=== PATIENT | male | born 1960 | race Caucasian/White ===

== ENCOUNTER → 2020-01-05 09:59 | Outpatient (CLI) | payer OTHER, SELFPAY ==
--- NOTE | ~2020-01-05 | US_ITS ---
US renal BI 01/05/2020 10:17 Procedure: Realtime transabdominal ultrasound of the kidneys and bladder. Indication: Acute renal failure Comparison: No prior studies for comparison. Findings: Renal echotexture is normal bilaterally without hydronephrosis, contour deforming mass or r enal calculus. The right kidney measures 11.1 cm and left kidney measures 11.1 cm. Bladder within no rmal limits. Impression: 1: Unremarkable renal ultrasound. No stones, masses or hydronephrosis. Reviewed, dictated and finalized at location B. ESS AND WELLNESS DIRECTOR Impression: 1: Unremarkable renal ultrasound. No stones, masses or hydronephrosis.
== END ==
PROVIDERS: PCP Family Medicine; Visit Provider Internal Medicine Nephrology
DX: N17.9 Acute kidney failure, unspecified (principal)
CPT/HCPCS: 76775

== ENCOUNTER 2021-03-16 03:42 | Emergency (ER) | payer OTHER, SELFPAY ==
--- NOTE | ~2021-03-16 | XR_ITS ---
EXAMINATION: XR shoulder RT min 2V, XR ribs RT 2V w CXR 2V DATE: 03/16/2021 04:44 INDICATION: Fall presenting with anterolateral right chest pain and diffuse right shoulder tenderness . Sensation of shoulder popping out and back in place at the time of the injury. TECHNIQUE: 1. AP internally and externally rotated, AP oblique externally rotated and transscapular Y views of t he right shoulder were obtained. 2. PA and lateral views of the chest and 3 views of the right ribs were obtained. COMPARISON: None FINDINGS: Chest and ribs: No rib fractures. Lungs are clear with no focal airspace opacities, pulmonary edema, pleural effusion or pneumothorax. Cardiomediastinal silhouette is normal. There are bridging osteophytes at multiple levels in the spine, consistent with diffuse idiopathic skeletal hyperostosis (DISH). Right shoulder: Normal alignment. No fracture. Moderate right glenohumeral osteoarthritis with small marginal osteop hytes and inferior predominant nonuniform joint space. Mild acromioclavicular osteoarthritis. Small c alcified right axillary lymph node likely related to history of treated lymphoma. IMPRESSION: 1. No rib fractures or acute cardiopulmonary disease. 2. Mild right acromioclavicular and moderate glenohumeral osteoarthritis. No acute osseous abnormalit y. Reviewed, dictated and finalized at location A. RNAL REVENUE AGENT IMPRESSION: 1. No rib fractures or acute cardiopulmonary disease. 2. Mild right acromioclavicular and moderate glenohumeral osteoarthritis. No ac [place] osseous abnormality.
[2021-03-16 04:06] VITALS: BP 173/116; PULSE 79; RESP 20; TEMP 36.8; O2SAT 99
--- NOTE | 2021-03-16 04:36 | ED.FALL ---
HPI - Fall General Chief Complaint: Fall Stated Complaint: fall with injury Time Seen by Provider: 03/16/21 04:15 Source: patient History of Present Illness HPI Narrative: Patient presents after a fall reports he is coming down some stairs when his foot slipped try to catch himself with his right arm which got pulled and he felt a pop and then he struck his right shoulder on the concrete and felt another pop. Is concerned he dislocated and then relocated his right shoulder. The event happened yesterday afternoon his pain has persisted so he came to the ER for evaluation. Denies any focal numbness or weakness. His pain is achy, constant, worse with moving his right shoulder. He denied striking his head denies any loss of consciousness denies any nausea or vomiting he denies use of blood thinners Related Data Home Medications Medication Instructions Recorded Confirmed alprazolam 02/14/19 atenolol 02/14/19 atorvastatin 02/14/19 clopidogrel 02/14/19 cyclobenzaprine mg 02/14/19 metformin mg 02/14/19 methotrexate sodium 02/14/19 cyclobenzaprine mg 03/16/21 Allergies Allergy/AdvReac Type Severity Reaction Status Date / Time No Known Allergies Allergy Unverified 03/16/21 04:09 Review of Systems Review of Systems: CONSTITUTIONAL: Denies fever, chills, or sweats. EYES: Denies visual changes, redness, or discharge. ENT: Denies rhinorrhea, congestion, sore throat, or otalgia. CARDIOVASCULAR: Denies palpitations, or edema. RESPIRATORY: Denies cough or dyspnea. GASTROINTESTINAL: Denies abdominal pain, nausea, vomiting, or diarrhea. GENITOURINARY: Denies dysuria or hematuria. SKIN: Denies rash or itching. MUSCULOSKELETAL: Denies back pain, or myalgia. NEUROLOGIC: Denies headache, numbness, dizziness, or weakness. PSYCHIATRIC: Denies anxiety or depression. All systems reviewed & are unremarkable except as noted in HPI and below PMFSH Family History Family History Father Cerebrovascular accident Family history of Alzheimer's disease Malignant neoplasm of prostate Mother Family history of dementia Social History Social History Smoking status: Never smoker Alcohol intake: never Exam Narrative: GENERAL: Well-appearing, well-nourished, and in no acute distress. HEAD: Normocephalic, atraumatic. EYES: PERRLA and EOMI. ENT: Nares clear, no rhinorrhea or epistaxis. Mucous membranes moist. NECK: Supple. No masses. No JVD CHEST: Clear to auscultation. No respiratory distress. No wheezes rales or rhonchi mild tenderness with palpation on the right upper anterior chest no obvious deformity HEART: Regular rate and rhythm. No murmur heard. Normal peripheral pulses. EXTREMITIES: Good range of motion of the right shoulder due to pain there is diffuse tenderness to the right shoulder there is no obvious deformity distal extremity sensation intact 5 out of 5 strength and cap refill less than 2 seconds SKIN: Warm, dry, no rash. NEURO: No focal deficits. Alert and oriented x3. PSYCH: Normal mood and affect. Course Reevaluation(s) Reevaluation #1: Patient resting comfortably results and plan reviewed with patient. Patient is comfortable outpatient plan. Date: 03/16/21 Time: 04:56 Vital Signs Vital signs: Vital Signs Temperature 36.8 C 03/16/21 04:06 Pulse Rate 79 03/16/21 04:06 Respiratory Rate 20 03/16/21 04:06 Blood Pressure 173/116 H 03/16/21 04:06 Pulse Oximetry 99 03/16/21 04:06 Temperature 36.8 C 03/16/21 04:06 Pulse Rate 72 03/16/21 05:32 Respiratory Rate 16 03/16/21 05:32 Blood Pressure 156/86 H 03/16/21 05:32 Pulse Oximetry 98 03/16/21 05:32 MDM - Fall MDM Narrative Medical decision making narrative: H&P as above, vss, pt looks clinically well, exam with diffuse tenderness on the right upper anterior chest and right shoulder, labs imaging without acute p
[2021-03-16 05:32] VITALS: BP 156/86; PULSE 72; RESP 16; O2SAT 98
== END 2021-03-16 05:33 | disposition home or self-care (01) ==
LOC: ANHED 05:13
PROVIDERS: Emergency Provider Emergency Medicine; PCP Family Medicine
DX: S49.91XA Unspecified injury of right shoulder and upper arm, initial encounter (principal); R07.89 Other chest pain; W18.49XA Other slipping, tripping and stumbling without falling, initial encounter
CPT/HCPCS: 71046; 71100; 73030; 99284; A4565

== ENCOUNTER 2021-07-30 13:45 | Observation (INO) | payer OTHER, SELFPAY ==
[2021-07-30] VITALS (24 sets, daily range): BP systolic 147–184; BP diastolic 89–108; PULSE 69–84; RESP 12–21; TEMP 36.3–36.6; O2SAT 96–99; BMI 25.9
--- NOTE | ~2021-07-30 | CT_ITS ---
EXAMINATION: CTA chest PE protocol DATE: 07/30/2021 16:36 INDICATION: chest pain TECHNIQUE: Computed tomography angiography (CTA) of the chest was performed with 100 mL Omnipaque-350 intravenous contrast timed to evaluate the pulmonary arteries. Coronal maximum intensity projection 3D-reconstructions were created by the technologist. The dose-length product (DLP) was 933.05 mGy-cm. Automated exposure control and iterative reconstruction technique were employed. COMPARISON: X-ray chest, same date. PET/CT 10/02/2017. FINDINGS: Study quality: Adequate. Pulmonary arteries: No pulmonary emboli detected. Thoracic aorta: Minimal arch calcification. Minimal ectasia. Lung parenchyma and airways: Stable pulmonary nodules, likely representing granulomatous disease. Min imal biapical pleural scarring. Thoracic inlet, axillae and chest wall: Stable partially calcified right axillary lymph node. Mediastinum: Normal. Heart and pericardium: Normal. Coronary artery calcifications: Moderate. Pleura: Unremarkable. Upper abdomen: No significant finding. Bones: No acute osseous finding. IMPRESSION: No CT evidence of acute pulmonary embolus. Reviewed, dictated and finalized at location K.
--- NOTE | ~2021-07-30 | XR_ITS ---
EXAMINATION: XR chest 1V portable Exam Date/Time: 07/30/2021 14:20 CDT HISTORY: LEFT SIDED CHEST PAIN Comparison: 03/02/2009. RESULT: Lines, tubes, and devices: None. Lungs and pleura: Clear. Cardiomediastinal silhouette: Stable cardiomediastinal silhouette. Other: No acute osseous or upper abdominal finding. IMPRESSION: No acute cardiopulmonary process. Reviewed, dictated and finalized at location K.
--- NOTE | 2021-07-30 13:49 | ECG_ITS ---
Measurements Intervals [place] Rate: 75 P: 54 SC: 145 QRS: -4 QRSD: 101 T: -1 QT: 378 QTc: 425 Interpretive Statements SINUS RHYTHM NONSPECIFIC T-WAVE ABNORMALITY ABNORMAL ECG NO PREVIOUS ECG AVAILABLE FOR COMPARISON Electronically Signed On 07-31-2021 7:08:17 CDT by Jose Tate M.D.
--- NOTE | 2021-07-30 13:51 | ED.GENADULT ---
HPI - General Adult General Chief complaint: Chest Pain Stated complaint: CP Source: RN notes reviewed History of Present Illness HPI narrative: Patient presents emergency department from home via EMS for chest pain. Patient states pain is located over the left side of the chest does not radiate described as a pressure in nature. He states he had an episode of chest pain last evening lasted for approximately 20 minutes and resolved on its own he states that this episode occurred approximate hour ago and still ongoing patient states nothing makes the pain better or worse he denies any fevers or chills does note mild shortness of breath with the symptoms denies any abdominal pain nausea vomiting or diarrhea. Denies any previous cardiac history Related Data Home Medications Medication Instructions Recorded Confirmed alprazolam 1 mg tablet 02/14/19 atenolol 50 mg tablet 02/14/19 atorvastatin 40 mg tablet 02/14/19 clopidogrel 75 mg tablet 02/14/19 cyclobenzaprine 10 mg tablet mg 02/14/19 metformin 1,000 mg tablet mg 02/14/19 methotrexate sodium 2.5 mg tablet 02/14/19 cyclobenzaprine 10 mg tablet mg 03/16/21 Allergies Allergy/AdvReac Type Severity Reaction Status Date / Time No Known Allergies Allergy Verified 07/30/21 13:55 Review of Systems Review of Systems: Gen.: Denies fevers or chills ENT: Denies congestion Respiratory: Reports shortness of breath CV: See HPI GI: Denies abdominal pain nausea, emesis or diarrhea Musculoskeletal: Denies back pain or muscle pain Neuro: Denies numbness, tingling, weakness or focal weakness Skin: Denies rash Except as documented, all other systems reviewed and negative [facility] Past Medical History Medical History (Updated 07/30/21 @ 14:35 by Leobardo Alexander DO) Hypertension Family History Family History Father Cerebrovascular accident Family history of Alzheimer's disease Malignant neoplasm of prostate Mother Family history of dementia Social History Social History Smoking status: Never smoker Alcohol intake: never Exam Narrative: APPEARANCE: No acute distress, nontoxic, resting in bed EYES: EOMI HEENT: Normocephalic, atraumatic, OMM RESPIRATORY: No respiratory distress Clear to auscultation bilaterally with no rhonchi wheezing or rales. CARDIOVASCULAR: Regular rate and rhythm without murmurs rubs or gallops. ABDOMINAL: Soft, nontender, nondistended, no rebound or guarding MUSCULOSKELETAl: Moves all extremities. No clubbing, cyanosis or edema. NEURO: Awake and alert. Following commands, speech normal, no focal deficits SKIN:: Warm, dry. No rashes lesions or abrasions PSYCHIATRIC: Normal affect/mood, Course Course Emergency Course: Patient states chest pain is now resolved at this time Discussed with DIONNE Diaz for Dr. Alberto agrees with admission Discussed with Dr. Tate agrees with consult Discussed with patient and family results of workup and diagnosis. Discussed need for admission. Patient and family understand and agree to current treatment plan Vital Signs Vital signs: Vital Signs Pulse Rate 81 07/30/21 13:49 Respiratory Rate 17 07/30/21 13:49 Blood Pressure 173/104 H 07/30/21 13:49 Pulse Oximetry 97 07/30/21 13:49 Oxygen Delivery Room Air 07/30/21 13:49 Pulse Rate 79 07/30/21 16:45 Respiratory Rate 12 07/30/21 16:45 Blood Pressure 151/94 H 07/30/21 16:16 Pulse Oximetry 97 07/30/21 16:45 Oxygen Delivery Room Air 07/30/21 13:49 Medical Decision Making Vital Signs Vital Signs: Vital Signs Pulse Rate 81 07/30/21 13:49 Respiratory Rate 17 07/30/21 13:49 Blood Pressure 173/104 H 07/30/21 13:49 Pulse Oximetry 97 07/30/21 13:49 Oxygen Delivery Room Air 07/30/21 13:49 Pulse Rate 79 07/30/21 16:45 Respiratory Rate 12 07/30/21 16:45 Blood Pressure 15
[2021-07-30 14:00] LABS: Basophils Percent Auto 0.2 % (0.2-1.2); Eosinophils Absolute Auto 0.1 K/mm3 (0-0.3); Eosinophils Percent Auto 1.3 % (0-4.4); Hematocrit 34.9 % (42.0-52.0); Hemoglobin 11.3 g/dL (14.0-18.0); Immature Granulocyte Absolute 0.03 K/mm3 (0.00-0.031); Immature Granulocyte Percent A 0.4 % (0-0.5); Lymphocytes Absolute Auto 2.12 K/mm3 (0.9-3.2); Lymphocytes Percent Auto 25.3 % (18.3-44.2); Mean Corpuscular HGB Conc 32.4 g/dl (32-36); Mean Corpuscular Hemoglobin 31.2 pg (26-34); Mean Corpuscular Volume 96.4 fl (80-100); Mean Platelet Volume 10.1 fl (7.4-10.4); Monocytes Absolute Auto 0.8 K/mm3 (0.1-0.6); Monocytes Percent Auto 9.7 % (2.6-8.5); Neutrophils Absolute Auto 5.3 K/mm3 (1.3-6.7); Neutrophils Percent Auto 63.1 % (45.5-73.1); Platelet Count Result 258 k/mm3 (150-375); Red Blood Count 3.62 M/mm3 (4.6-6.20); White Blood Count 8.4 K/mm3 (4.5-10.0)
[2021-07-30 14:10] LABS: Alanine Aminotransferase 15 U/L (6-50); Alkaline Phosphatase 86 U/L (38-126); Anion Gap 8 mmol/L (8-16); Aspartate Amino Transferase 18 U/L (17-59); Bilirubin,Total 0.2 mg/dL (0.2-1.3); Blood Urea Nitrogen 18 mg/dL (9-20); Calcium 8.4 mg/dL (8.4-10.2); Carbon Dioxide 23 mmol/L (22-30); Chloride 107 mmol/L (98-107); Estimated CRCL calculation 45 ml/min; Estimated Glomerular Filt Rate 41; Glucose 99 mg/dL (65-110); Lipase 296 U/L (23-300); Potassium 3.5 mmol/L (3.4-5.0); Sodium 138 mmol/L (137-145)
[2021-07-30 14:13] LABS: INR 0.9; Partial Thromboplastin Time 25.5 SECONDS (22.3-36.8); Prothrombin Time 12.1 Seconds (11.1-14.7)
[2021-07-30 14:22] LABS: Troponin I < 0.012 ng/mL (0.000-0.034)
[2021-07-30 17:30] LABS: Troponin I < 0.012 ng/mL (0.000-0.034)
[2021-07-30] MEDS: SODIUM CHLORIDE 0.9% IV 1,000 ML 999 ML IV CONT (17:33)
[2021-07-30 17:52] LABS: SARS-CoV-2 RNA PCR Negative
--- NOTE | 2021-07-30 18:04 | ADMGEN ---
This patient, Ham Moreno, was admitted to IMU Room 201-01 at 1755. Patient/family oriented to hospital policies and general routines including ID bracelet, bed and alarms, visiting hours, pain management, procedures, bathroom and other care routines, personal items, smoking policy, room service/diet, and visiting hours. Information on how to activate the Rapid Response Team has been discussed. Patient/Family are encouraged to report perceived risks to care and to ask questions if they do not understand what they are told or what they should do.
[2021-07-30 19:03] LABS: Glucose Point of Care 146 mg/dl (65-105)
--- NOTE | 2021-07-30 20:11 | PM.IMHP ---
H&P: HPI History of Present Illness Date/Time: 07/30/21 20:11 Chief Complaint: Chest pain. Narrative: Patient is a 61-year-old male past medical history significant for hypertension, T-cell lymphoma, GERD, dyslipidemia. Patient presents to the emergency room due to sudden onset of chest pain localized to the retrosternal area associated with diaphoresis, dizziness, lightheadedness, near-syncope, sharp stabbing pain rates it at 9/10 in intensity had 2 episodes of this pain while at rest at home. Patient has been in his usual state of health prior to this denies any chest pain with exertion, no nausea, no vomiting, no abdominal pain, no diarrhea, no PND, no leg swelling. Patient states that he had a catheterization done a while back ago which did not show any abnormalities. Preliminary workup has been essentially nonrevealing. Patient is been admitted for further evaluation, management and treatment. Review of Systems Review of Systems: Retrosternal chest pain. Constitutional: Constitutional: Denies body ache(s), Denies chills, Denies fatigue, Denies fever(s), Denies lethargy and Denies night sweats Eyes: Eyes: Denies change in vision ENT: Denies dysphagia, Reports vertigo, Reports dizziness, Denies nasal congestion, Denies nasal discharge, Denies odynophagia and Denies disequilibrium Cardiovascular: Cardiovascular: Reports chest pain, Reports chest pain at rest, Denies pedal edema, Denies irregular heart rhythm, Denies claudication, Denies leg edema, Reports lightheadedness, Denies radiating jaw, neck or arm pain, Denies palpitations, Denies dyspnea on exertion and Denies paroxysmal nocturnal dyspnea Respiratory: Respiratory: Denies change in phlegm color, Denies chest congestion, Denies cough and Denies excessive phlegm production Gastrointestinal: Gastrointestinal: Denies abdominal pain, Denies melena, Denies dyspepsia, Denies heartburn, Denies nausea and Denies vomiting Genitourinary: Genitourinary: Reports no additional male genitourinary complaints and Reports as per HPI Musculoskeletal: Musculoskeletal: Denies arthralgias and Denies joint swelling Integumentary/Breasts: Skin/Breast: Denies rash Neurologic: Denies focal weakness and Denies Sensory deficit (Neuro) Psychiatric: Psychiatric: Reports no additional psychiatric complaints and Reports as per HPI Endocrine: Endocrine: Denies cold intolerance, Denies fatigue, Denies flushing, Denies heat intolerance, Denies polyphagia, Denies polydipsia and Denies palpitations Hematologic/Lymphatic: Hematologic/Lymphatic: Reports no additional hematologic/lymphatic complaints and Reports as per HPI Allergic/Immunologic: Allergic/Immunologic: Reports no additional allergic/immunologic complaints and Reports as per HPI PMFSH Past Medical History Medical History (Updated 07/31/21 @ 16:35 by Ephraim Blackwell MD) Hypertension T-cell lymphoma Family History Family History Father Cerebrovascular accident Family history of Alzheimer's disease Malignant neoplasm of prostate Mother Family history of dementia Social History Social History Smoking status: Former smoker Tobacco type: cigarettes Second hand tobacco smoke exposure: No Alcohol intake: former Substance use: former Substance use type: marijuana Spiritual care concerns: No Meds Home Medications and Allergies Home Medications Medication Instructions Recorded Confirmed Type alprazolam 1 mg tablet (Xanax) 1 mg PO BID PRN Anxiety 02/14/19 07/30/21 History atorvastatin 40 mg tablet (Lipitor) 40 mg PO QPM 02/14/19 07/30/21 History cyclobenzaprine 10 mg tablet 10 mg PO TID PRN Nerve pain 02/14/19 07/30/21 History metformin 1,000 mg tablet 1,000 mg PO BID 02/14/19 07/30/21 History methotrexate sodium 2.5 mg tablet 20 mg PO WEEKLY 02/14/19 07/30/21 History amlodipine 5 mg tablet (Norvasc) 5
[2021-07-30 20:19] LABS: Troponin I < 0.012 ng/mL (0.000-0.034)
[2021-07-30 20:57] LABS: Glucose Point of Care 124 mg/dl (65-105)
[2021-07-31] VITALS (9 sets, daily range): BP systolic 148–187; BP diastolic 85–108; PULSE 66–98; RESP 15–16; TEMP 36.4–36.9; O2SAT 98–100
[2021-07-31 04:48] LABS: Basophils Percent Auto 0.3 % (0.2-1.2); Eosinophils Absolute Auto 0.1 K/mm3 (0-0.3); Eosinophils Percent Auto 1.3 % (0-4.4); Hematocrit 35.7 % (42.0-52.0); Immature Granulocyte Absolute 0.04 K/mm3 (0.00-0.031); Immature Granulocyte Percent A 0.6 % (0-0.5); Lymphocytes Absolute Auto 1.85 K/mm3 (0.9-3.2); Lymphocytes Percent Auto 25.9 % (18.3-44.2); Mean Corpuscular HGB Conc 33.6 g/dl (32-36); Mean Corpuscular Hemoglobin 31.3 pg (26-34); Mean Corpuscular Volume 93.2 fl (80-100); Mean Platelet Volume 10.7 fl (7.4-10.4); Monocytes Absolute Auto 0.7 K/mm3 (0.1-0.6); Monocytes Percent Auto 9.5 % (2.6-8.5); Neutrophils Absolute Auto 4.5 K/mm3 (1.3-6.7); Neutrophils Percent Auto 62.4 % (45.5-73.1); Platelet Count Result 250 k/mm3 (150-375); Red Blood Count 3.83 M/mm3 (4.6-6.20); White Blood Count 7.1 K/mm3 (4.5-10.0)
[2021-07-31 05:00] LABS: Alanine Aminotransferase 13 U/L (6-50); Albumin Level 3.7 g/dL (3.5-5.1); Alkaline Phosphatase 60 U/L (38-126); Anion Gap 6 mmol/L (8-16); Aspartate Amino Transferase 17 U/L (17-59); Bilirubin,Total 0.2 mg/dL (0.2-1.3); Blood Urea Nitrogen 17 mg/dL (9-20); Calcium 8.5 mg/dL (8.4-10.2); Carbon Dioxide 25 mmol/L (22-30); Chloride 109 mmol/L (98-107); Estimated CRCL calculation 54 ml/min; Estimated Glomerular Filt Rate 51; Glucose 88 mg/dL (65-110); Potassium 3.8 mmol/L (3.4-5.0); Sodium 140 mmol/L (137-145)
[2021-07-31 08:42] LABS: CRP < 0.5 mg/dL (<1.0); Creatine Kinase 50 U/L (55-170)
--- NOTE | 2021-07-31 08:45 | PM.CNCAR ---
Assessment and Plan Assessment and plan (1) Chest pain: Code(s): R07.9 - Chest pain, unspecified Status: Acute Plan This is a 61-year-old man with hypertension who presents to the hospital with stabbing episodes of chest pain that were occurring yesterday prompting evaluation in the emergency room and admitted to the hospital. The symptoms are very atypical of myocardial ischemia in my opinion. His ECG and troponin levels show no evidence of acute coronary syndrome. I do not believe this patient needs to be kept in the hospital for further cardiac evaluation. He is concerned that none of his home medications have been administered I do not believe they have been ordered since he has been up on the floor. I am going to sign off his case at this time. If you need my opinion about anything else please let me know Jose Tate MD [facility] History of Present Illness History of Present Illness Consult date/time: 07/31/21 08:45 Consult reason: chest pain Reason For Visit: Chest Pain Narrative: This is a 61-year-old man I am seeing at the request of the hospitalist this morning because of chest pain that resulted in admitting him to the hospital yesterday evening. He states that at about mid day yesterday around noon time he started to experience chest pain at home. He had finished eating a meal with his sister and he laid down on the couch in his home to relax. He suddenly was feeling unwell with sharp knife-like stabbing pain in the center of the chest that was obviously very concerning to him. He was having these symptoms off and on for about 15 minutes. It did not associated with any sense of air hunger radiation to any other part of the body or nausea vomiting or diaphoresis. He after about 15 minutes of this was concerned enough to call 911 he was brought to the emergency room for evaluation. The discomfort has subsided on its own although he feels there is still a funny sensation in his chest that he has a hard time describing any further. He otherwise appears to be comfortable watching television relaxing in bed and does not have any other complaints. He is not known to have any cardiac problems prior to this. He seeks his medical care elsewhere usually. He has been hospitalized in the past couple of times and in [place] for various problems he states that a few years ago he had a similar episode of some chest pain like this was hospitalized at that institution actually underwent coronary angiography which she was told was favorable. Of course we have none of those records at the time of this dictation as none of this care was delivered here at [place]. In the emergency room the patient's electrocardiogram shows sinus rhythm with some nonspecific T-wave flattening. His troponin levels have remained normal x3 sets. Review of Systems Constitutional: Constitutional: Reports no additional constitutional complaints Eyes: Eyes: Reports no additional eye complaints ENT: Reports system reviewed and no additional complaints, except as documented Cardiovascular: Cardiovascular: Reports as per HPI Respiratory: Respiratory: Reports no additional respiratory complaints Gastrointestinal: Gastrointestinal: Reports no additional gastrointestinal complaints Musculoskeletal: Musculoskeletal: Reports arthralgias Comments: Patient has chronic right shoulder pain Integumentary/Breasts: Skin/Breast: Reports system reviewed and no additional complaints, except as docu Neurologic: Reports system reviewed and no additional complaints, except as documented Endocrine: Endocrine: Reports no additional endocrine complaints Hematologic/Lymphatic: Hematologic/Lymphatic: Reports no additional hematologic/lymphatic complaints Allergic/Immunologic: Allergic/Immunologic: Reports no additional allergic/immunologic complaints [facility] Past Medical History Medical History (Updated 07/31/21 @ 02:08 by Phuong Ferrari MD) Hype
[2021-07-31 09:31] LABS: Glucose Point of Care 103 mg/dl (65-105)
[2021-07-31] MEDS: CLOPIDOGREL BISULFATE 75 MG TABLET PO (09:57)
[2021-07-31 12:02] LABS: Creatinine Urine 43.7 mg/dL
[2021-07-31 12:04] LABS: Sodium Urine Random 67 meq/L
[2021-07-31 12:06] LABS: Glucose Point of Care 112 mg/dl (65-105)
[2021-07-31 12:10] LABS: RBC Urine 0-2 /hpf (0-2); WBC Urine 0-3 /hpf (0-3)
[2021-07-31 12:15] LABS: Appearance Urine Clear (Clear); Bilirubin Urine Negative (Negative); Blood Urine Trace-lysed (Negative); Color Urine Yellow (Yellow); Glucose Urine UA Negative (Negative); Ketones Urine Trace mg/dL (Negative); Leukocyte Esterase Ur Negative LEU/UL (NEGATIVE); Nitrate Urine Negative (Negative); Protein Urine Negative (Negative); Urobilinogen Urine 0.2 mg/dL (<2.0)
[2021-07-31 12:34] LABS: Add Urine Microscopic? YES
[2021-07-31 12:35] LABS: Eosinophil Urine None Seen % (None Seen)
--- NOTE | 2021-07-31 16:09 | PM.DS ---
DS: Admitting Diagnosis Discharge Date 07/31/21 Admitting Diagnosis Chest pain DS: Discharge Diagnosis Discharge Diagnosis (1) Chest pain: Code(s): R07.9 - Chest pain, unspecified Status: Acute (2) Hypertension: Code(s): I10 - Essential (primary) hypertension Status: Acute (3) Near syncope: Code(s): R55 - Syncope and collapse Status: Acute (4) SHARRI (acute kidney injury): Code(s): N17.9 - Acute kidney failure, unspecified Status: Acute (5) T-cell lymphoma: Code(s): C85.90 - Non-Hodgkin lymphoma, unspecified, unspecified site Status: Acute DS: Summary Hospital Course Reason for hospitalization: 61yo male with T cell lymphoma and HTN here for chest pain. Please see H&P for details. Hospital Course: Patient presents to the emergency room by EMS for stabbing left-sided chest pain that is nonradiating. Nothing makes it better or worse. It occurred at rest. Her shortness of breath, nausea, vomiting diaphoresis per pain resolved on its own without intervention. No history of coronary disease but did have a hospitalization for chest pain and underwent coronary angiogram which showed no significant disease per patient. EKG showed normal sinus rhythm and nonspecific T-wave changes. Troponin was negative x3. His blood pressure was elevated at 173/104. He had mild anemia with hemoglobin of 11-12 range otherwise normal CBC. PT and PTT were normal. D-dimer was elevated 1.2. Chest x-ray was clear. CTA of the chest showed no pulmonary emboli. He had no pedal edema and a negative Homans sign and thus was felt the DVT was much less likely. Well's criteria was very low. His elevated D-dimers more likely related to his T-cell lymphoma. Creatinine 1.7 but on recheck was 1.4. Patient had been started on Celebrex recently and he was told to stop this. Urinalysis was negative. Urine eosinophils are negative. COVID was negative. We were unable to get renal ultrasound today. Home medications resumed including Atenolol. He is compliant with his home medications except that he has been off his Plavix since January for unclear reasons. BP 156/108 after resuming home meds. No recurrence of the chest pain. Cardiology did evaluate the patient but did not feel any further evaluation was needed. Patient did well and was eager for discharge. He was able to be discharged home on 07/31/21. Status at Discharge Cognitive/behavioral status at discharge: Stable Time Spent with Patient Time attestation: Total time spent providing and/or coordinating discharge services: 38 minutes Exam Narrative: AF 98.5 158/108 73 16 99% ra Gen - NARD Chest - CTA bilaterally, nml RR CV - RRR S1/S2; Tele showing occasional PVCs Abd - Soft, NT/ND, Positive BS Ext - No pedal edema; negative Fanny's. Psych - Nml mood and affect Skin - Warm and dry DS: Data Data Completed and Pending Labs on day of discharge: Labs from last 24 hours 07/31/21 07/31/21 07/31/21 11:40 11:30 11:30 WBC RBC Hgb Hct MCV MCH MCHC RDW Plt Count MPV Immature Gran % (Auto) Neut % (Auto) Lymph % (Auto) [place] % (Auto) Eos % (Auto) Baso % (Auto) Lymph # (Auto) [place] # (Auto) Eos # (Auto) Baso # (Auto) Abs Immat Gran (auto) Absolute Neuts (auto) Absolute Nucleated RBC Nucleated RBC % Sodium Potassium Chloride Carbon Dioxide Anion Gap BUN Creatinine Estim Creat Clear Calc Estimated GFR Glucose POC Capillary Glucose 112 H Calcium Total Bilirubin AST ALT Alkaline Phosphatase Total Creatine Kinase Troponin I C-Reactive Protein Total Protein Albumin Urine Color Urine Appearance Urine pH Ur Specific [place] Urine Protein Urine Glucose (UA) Urine Ketones Ur Blood (Man) Urine Nitrate Urine Bilirubin Urine Urobilinogen
[2021-07-31 16:33] LABS: Glucose Point of Care 144 mg/dl (65-105)
[2021-07-31] MEDS: atenoloL 50 MG TABLET PO (16:39)
--- NOTE | 2021-07-31 16:39 | PC.NURSE ---
Pt was given a total of 100 mg of atenolol per MD orders on 07/31/21 @ 1100 a
--- NOTE | 2021-07-31 17:40 | PC.NURSE ---
Discharge forms explained and given to pt. Pt left off unit stable, with brother and all personal belongings. Pt refused W/C
--- NOTE | 2021-08-02 06:38 | PC.NURSE ---
Urine cx is negative. Dr. Rishi celestin.
== END 2021-07-31 17:16 | disposition home or self-care (01) ==
LOC: ANHED 15:39 → ANHIMU 17:26
PROVIDERS: Admitting Provider Family Medicine; Emergency Provider Emergency Medicine; PCP Family Medicine; Visit Provider Internal Medicine
DX: R07.9 Chest pain, unspecified (principal); R55 Syncope and collapse; N17.9 Acute kidney failure, unspecified; C85.90 Non-Hodgkin lymphoma, unspecified, unspecified site; Z79.02 Long term (current) use of antithrombotics/antiplatelets; Z79.84 Long term (current) use of oral hypoglycemic drugs; I10 Essential (primary) hypertension; E78.5 Hyperlipidemia, unspecified; Z87.891 Personal history of nicotine dependence; Z20.822 Contact with and (suspected) exposure to COVID-19
CPT/HCPCS: 36415; 71045; 71275; 80053; 81001; 82550; 82570; 82948; 83690; 84300; 84484; 85025; 85380; 85610; 85730; 85999; 86140; 87086; 93005; 99285; A9270; C9803; G0378; J7030; Q9967; U0003; U0005

== ENCOUNTER 2021-08-03 09:53 | Outpatient (CLI) | payer OTHER, SELFPAY ==
[2021-08-03 10:39] LABS: Anion Gap 7 mmol/L (8-16); Blood Urea Nitrogen 28 mg/dL (9-20); Calcium 9.2 mg/dL (8.4-10.2); Carbon Dioxide 25 mmol/L (22-30); Chloride 107 mmol/L (98-107); Estimated Glomerular Filt Rate 44; Glucose 109 mg/dL (65-110); Potassium 4.6 mmol/L (3.4-5.0); Sodium 139 mmol/L (137-145)
== END 2021-08-03 09:54 | disposition home or self-care (01) ==
LOC: ANHLAB 09:55
PROVIDERS: PCP Family Medicine; Visit Provider Internal Medicine
DX: N17.9 Acute kidney failure, unspecified (principal)
CPT/HCPCS: 36415; 80048

== ENCOUNTER 2023-06-18 14:21 | Outpatient (CLI) | payer OTHER, SELFPAY ==
[2023-06-18 14:50] LABS: Basophils Percent Auto 0.3 % (0.2-1.2); Eosinophils Absolute Auto 0.1 K/mm3 (0-0.3); Eosinophils Percent Auto 1.6 % (0-4.4); Hematocrit 37.4 % (42.0-52.0); Hemoglobin 12.2 g/dL (14.0-18.0); Immature Granulocyte Absolute 0.03 K/mm3 (0.00-0.031); Immature Granulocyte Percent A 0.4 % (0-0.5); Lymphocytes Absolute Auto 1.64 K/mm3 (0.9-3.2); Lymphocytes Percent Auto 21.8 % (18.3-44.2); Mean Corpuscular HGB Conc 32.6 g/dl (32-36); Mean Corpuscular Volume 94.9 fl (80-100); Mean Platelet Volume 10.4 fl (7.4-10.4); Monocytes Absolute Auto 0.7 K/mm3 (0.1-0.6); Monocytes Percent Auto 9.4 % (2.6-8.5); Neutrophils Percent Auto 66.5 % (45.5-73.1); Platelet Count Result 270 k/mm3 (150-375); Red Blood Count 3.94 M/mm3 (4.6-6.20); Red Cell Distribution Width 14.4 % (11.5-14.5); White Blood Count 7.5 K/mm3 (4.5-10.0)
[2023-06-18 16:59] LABS: Alanine Aminotransferase 15 U/L (6-50); Albumin Level 4.6 g/dL (3.5-5.1); Alkaline Phosphatase 93 U/L (38-126); Anion Gap 11 mmol/L (4-12); Aspartate Amino Transferase 17 U/L (17-59); Bilirubin,Total 0.5 mg/dL (0.2-1.3); Blood Urea Nitrogen 21 mg/dL (9-20); Calcium 9.9 mg/dL (8.4-10.2); Carbon Dioxide 25 mmol/L (22-30); Chloride 104 mmol/L (98-107); Estimated Glomerular Filt Rate 38; Glucose 160 mg/dL (65-110); Lactate Dehydrogenase 160 U/L (120-246); Potassium 4.3 mmol/L (3.4-5.0); Sodium 140 mmol/L (137-145)
== END 2023-06-18 14:22 | disposition home or self-care (01) ==
LOC: ANHLAB 14:24
PROVIDERS: PCP Family Medicine; Visit Provider Internal Medicine Hematology & Oncology
DX: C84.A0 Cutaneous T-cell lymphoma, unspecified, unspecified site (principal)
CPT/HCPCS: 36415; 80053; 83615; 85025; 88184

== ENCOUNTER 2023-07-03 11:22 | Outpatient (CLI) | payer OTHER, SELFPAY ==
--- NOTE | ~2023-07-03 | PE_ITS ---
EXAMINATION: PET skull to mid thigh DATE: 07/03/2023 13:37 INDICATION: Cutaneous T-cell lymphoma. TECHNIQUE: Blood glucose level was 94 mg/dL. 12.061 mCi of 18-fluorodeoxyglucose (18-FDG) was adminis tered i.v. Low dose computed tomography (CT) images were acquired from the base of the brain to the p roximal thighs for attenuation correction and anatomic localization. Automated exposure control was e mployed. Dose-length product (DLP) was 1139 mGy-cm. Positron emission tomography (PET) images were ac quired in the same distribution. COMPARISON: Chest CT 07/30/2021, PET/CT 10/02/17 FINDINGS: Head/neck: Superficial to left parotid gland, there is a 1.6 cm cystic mass without increased activit y that may be a sebaceous cyst. In the left cheek, there is a 1.7 cm cystic mass without increased ac tivity that may be a sebaceous cyst. There are no pathologically enlarged lymph nodes. Chest: There is mild scarring at the lung apices. There is mild atelectasis bilaterally. A calcified left lung nodule and calcified left hilar lymph nodes are consistent with old granulomatous disease. No pleural effusion. Cardiomegaly is noted. There are coronary artery calcifications. No pericardial effusion. Abdomen/pelvis/proximal thighs: There is a 6 mm cyst in the liver. The gallbladder is distended, like ly secondary to fasting. The spleen, pancreas, adrenal glands and right adrenal gland are normal. The re is a 13 mm mass in left adrenal gland without increased activity, likely an adenoma. The kidneys a re normal. The prostate is mildly enlarged. There is a left inguinal hernia containing fat. There are no dilated loops of bowel. The appendix is normal. There are no pathologically enlarged lymph nodes. There is no free intraperitoneal fluid. There is no osseous malignancy. IMPRESSION: 1. No specific evidence of lymphoma. Reviewed, dictated and finalized at location A.
[2023-07-03 12:05] LABS: Glucose Point of Care 94 mg/dl (65-105)
== END 2023-07-03 11:23 | disposition home or self-care (01) ==
LOC: ANHIMG 11:23
PROVIDERS: PCP Family Medicine; Visit Provider Internal Medicine Hematology & Oncology
DX: C84.A0 Cutaneous T-cell lymphoma, unspecified, unspecified site (principal)
CPT/HCPCS: 78815; A9552

== ENCOUNTER 2024-01-14 11:09 | Outpatient (CLI) | payer MEDICAID, SELFPAY ==
[2024-01-14 11:36] LABS: Basophils Percent Auto 0.1 % (0.2-1.2); Eosinophils Absolute Auto 0.1 K/mm3 (0-0.3); Eosinophils Percent Auto 1.3 % (0-4.4); Hematocrit 35.3 % (42.0-52.0); Hemoglobin 11.4 g/dL (14.0-18.0); Immature Granulocyte Absolute 0.03 K/mm3 (0.00-0.031); Immature Granulocyte Percent A 0.4 % (0-0.5); Lymphocytes Absolute Auto 1.76 K/mm3 (0.9-3.2); Lymphocytes Percent Auto 21.1 % (18.3-44.2); Mean Corpuscular HGB Conc 32.3 g/dl (32-36); Mean Corpuscular Hemoglobin 30.3 pg (26-34); Mean Corpuscular Volume 93.9 fl (80-100); Mean Platelet Volume 10.2 fl (7.4-10.4); Monocytes Absolute Auto 0.7 K/mm3 (0.1-0.6); Monocytes Percent Auto 8.5 % (2.6-8.5); Neutrophils Absolute Auto 5.7 K/mm3 (1.3-6.7); Neutrophils Percent Auto 68.6 % (45.5-73.1); Platelet Count Result 308 k/mm3 (150-375); Red Blood Count 3.76 M/mm3 (4.6-6.20); Red Cell Distribution Width 14.9 % (11.5-14.5); White Blood Count 8.3 K/mm3 (4.5-10.0)
[2024-01-14 11:40] LABS: Blood Urea Nitrogen 17 mg/dL (8-26); Carbon Dioxide 23 mmol/L (22-30); Chloride 101 mmol/L (98-109); Estimated Glomerular Filt Rate 44; Glucose 147 mg/dL (70-105); Ionized Calcium (POC) 1.29 mmol/L (1.11-1.31); Potassium 4.4 mmol/L (3.5-4.9); Sodium 141 mmol/L (138-146)
[2024-01-14 13:28] LABS: Add Urine Microscopic? NO; Appearance Urine Clear (Clear); Bilirubin Urine Negative (Negative); Blood Urine Negative (Negative); Color Urine Yellow (Yellow); Glucose Urine UA Negative (Negative); Ketones Urine Negative (Negative); Leukocyte Esterase Ur Negative LEU/UL (Negative); Nitrate Urine Negative (Negative); Protein Urine Negative (Negative); Specific Grav Ur 1.016 (1.001-1.035); Urobilinogen Urine 0.2 mg/dL (<2.0); pH Urine 5.5 (5.0-9.0)
[2024-01-14 13:37] LABS: Alanine Aminotransferase 16 U/L (6-50); Albumin Level 4.4 g/dL (3.5-5.1); Alkaline Phosphatase 63 U/L (38-126); Anion Gap 8 mmol/L (4-12); Aspartate Amino Transferase 37 U/L (17-59); Bilirubin,Total 0.4 mg/dL (0.2-1.3); Blood Urea Nitrogen 18 mg/dL (9-20); Calcium 9.6 mg/dL (8.4-10.2); Carbon Dioxide 25 mmol/L (22-30); Chloride 105 mmol/L (98-107); Estimated Glomerular Filt Rate 47; Glucose 144 mg/dL (65-110); Potassium 4.4 mmol/L (3.4-5.0); Sodium 138 mmol/L (137-145)
== END 2024-01-14 11:10 | disposition home or self-care (01) ==
PROVIDERS: PCP Family Medicine; Visit Provider Internal Medicine Hematology & Oncology
DX: R30.0 Dysuria (principal); C84.A0 Cutaneous T-cell lymphoma, unspecified, unspecified site
CPT/HCPCS: 36415; 80047; 80053; 81003; 85025

== ENCOUNTER 2024-07-02 09:18 | Outpatient (CLI) | payer OTHER, SELFPAY ==
--- NOTE | ~2024-07-02 | XR_ITS ---
Lumbosacral Spine: AP and lateral views Clinical History: Pain Findings: The normal lordotic curve is maintained. The vertebral bodies and posterior elements are i ntact. Mild degenerative changes are present. Moderate to advanced facet arthropathy present througho ut, especially from L4 through S1.. The sacroiliac joints are normally outlined. Impression: Moderate degenerative spondylosis overall, as above. Reviewed, dictated and finalized at location . Impression: Moderate degenerative spondylosis overall, as above.
--- OUTSIDE RECORDS SUMMARY | 2024-07-02 09:22 | XMS_ITS | Clinical Summary ---
Author Organization [facility] Address [address] [place] [address] Care Team Providers Care Feedmobile Driver Name Role Phone Anna Henry MD Primary Care Provider + Allergies Active Allergy Reactions Criticality Noted Date Comments Meloxicam (Bulk) Hypertension Medium 06/18/2023 Medications atorvastatin (LIPITOR) 40 mg tablet Take 40 mg by mouth late in the day. Active ALPRAZolam (XANAX) 1 mg tablet Take 1 mg by mouth nightly as needed for Anxiety. Active raNITIdine (ZANTAC) 150 mg tablet Take 150 mg by mouth 2 times daily. Active cyclobenzaprine (FLEXERIL) 5 mg Tablet Take 10 mg by mouth 3 times daily as needed for Spasm. Active atenolol (TENORMIN) 50 mg tablet Take 100 mg by mouth daily. Active clopidogrel (PLAVIX) 75 mg Tablet Take 75 mg by mouth. Active folic acid (FOLVITE) 1 mg tablet Take 1 mg by mouth daily. Active amLODIPine (NORVASC) 5 mg tablet Take 5 mg by mouth daily. Active HYDROcodone-hemant taminophen (NORCO) 10-325 mg Tablet Take 1 Tablet by mouth every 6 hours as needed for Pain, Moderate. Active CALCIUM CITRATE-VITAMIN D3 ORAL Take 2,000 mg by mouth daily. Active cyanocobalamin 1,000 mcg Tablet Take 1,000 mcg by mouth daily. Active metFORMIN (GLUCOPHAGE) 1,000 mg tablet Take 1,000 mg by mouth 2 times daily with meals. Active methotrexate (RHEUMATREX) 2.5 mg Tablet Take 1 Tablet (2.5 mg) by mouth every 7 days. 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 Encounters Date Type Department Care Team Description 07/01/2024 External Device Data [facility] ABSTRACTION Provider, Abstract 06/25/2024 External Device Data [facility] ABSTRACTION Provider, Abstract 06/24/2024 External Device Data [facility] ABSTRACTION Provider, Abstract 05/20/2024 External Device Data [facility] ABSTRACTION Provider, Abstract 04/23/2024 External Device Data [facility] ABSTRACTION Provider, Abstract 04/16/2024 External Device Data [facility] ABSTRACTION Provider, Abstract 04/15/2024 External Device Data [facility] ABSTRACTION Provider, Abstract 04/12/2024 External Device Data [facility] ABSTRACTION Provider, Abstract 04/11/2024 External Device Data [facility] ABSTRACTION Provider, Abstract from Last 3 Months Family History Medical History Relation Name Comments Heart Disease Brother 1 No Known Problems Brother 2 No Known Problems Daughter Heart Disease Father Diabetes Mother Heart Disease Mother Diabetes Sister Heart Disease Sister No Known Problems Son Relation Name Status Comments Brother 1 Brother 2 Alive Daughter Alive Father Mother Sister Alive Son Alive Social History Tobacco Use Types Packs/Day Years Used Date Smoking Tobacco: Former Cigarettes 1 12 0 09/11/1975 - 09/11/1987 Smokeless Tobacco: Never Tobacco Cessation:Counseling Given: Not Answered Alcohol Use Standard Drinks/Week Comments No 0 (1 standard drink = 0.6 oz pur e alcohol) Sex and Gender Information Value Date Recorded Sex Assigned at Not on file Legal Sex Male 4:10 PM CDT Gender Identity Not on file Sexual Orientation Not on file Last Filed Vital Signs Vital Sign Reading Time Taken Comments Blood Pressure 142/87 01/14/2024 11:40 AM CAKE CUTTER MACHINE Pulse 78 01/14/2024 11:37 AM CAKE CUTTER MACHINE Temperature 36.7 C (98 F) 01/14/2024 11:37 AM CAKE CUTTER MACHINE Respiratory Rate 16 01/14/2024 11:3 7 AM CAKE CUTTER MACHINE Oxygen Saturation 96% 01/14/2024 11: 37 AM CAKE CUTTER MACHINE Inhaled Oxygen Concentration - - Weight 97.4 kg (214 lb 12.8 oz) 024 11:37 AM CAKE CUTTER MACHINE Height 182.9 cm (6') 06/18/2023 1:46 PM CDT Body Mass Index 29.13 06/18/2023 1:46 PM CDT Plan of Treatment Upcoming Encounters Date Type Department Care Team (Late st Contact Info) Description 07/17/2024 10:15 AM CDT Office Visit [facility] Oncology and Hematology [facility] [address] [place] [address] Victor Manuel Whittington MD [address] [place] [address] Health Maintenance Due Date Last Done Comments DIABETES ANNUAL FOOT EXAM 07/12/1977 DIABETES ANNUAL RETINAL EXAM 07/12/1977 DIABETES HBA1C Q 6 MONTHS 07/12/1977 DIABETES MICROALBUMIN ANNUAL SCREEN 07/12/1977 LDL CHOLESTEROL ANNUAL 07/12/1977 COLORECTAL SCREENING 07/12/2004 Colorectal Cancer Screening 07/12/2004 FIT-DNA Q 3 years 07/12/2004 FIT/FOBT Q 1 year 07/12/2004 Flex Sig/CT Colonography Q 5 years 07/12/2004 ZOSTER VACCINE (1 of 2) 07/12/2009 RSV VACCINE (60+ or ) (1 - Risk 60-74 years 1-dose series) 2019 INFLUENZA VACCINE (#1) 2023 3, 11/05/2019, 03/21/2017, Additional history exists DTAP/TDAP/TD VACCINES (2 - T d or Tdap) 07/24/2027 07/23/2017 Procedures Procedure Name Priority Date/Time Associated Diagnosis Comments LACTATE DEHYDROGENASE Routine 05/12/2024 7:50 AM CDT Cutaneous T-cell lymphoma, unspecified body region (CMS/HCC) from Last 3 Months Results * LACTATE DEHYDROGENASE (05/12/2024 7:50 AM CDT) LD (LACTATE DEHYDROGENASE) 121 120 - 250 U/L [facility] Comment: FASTING:NO FASTING: NO Test Performed at: [facility] [address] [place] [address] Cristian Crandall MD Blood 05/12/2024 7:50 AM CDT 05/12/2024 7:51 AM CDT us Victor Manuel Whittington MD CHEMISTRY ORDERABLES Final Resu lt [facility] [phone] [facility] [address] [place] [phone] from Last 3 Months Insurance [facility] [place] [id number] MEDICAID [place] Care Teams Feedmobile Driver Relationship Specialty Start Date End Date Anna Henry MD [address] [place] [address] PCP - General Family Practice 09/10/17
--- OUTSIDE RECORDS SUMMARY | 2024-07-02 09:22 | XMS_ITS | Clinical Summary ---
Author Organization [facility] Address [address] [place] [address] Phone Care Team Providers Care Drug Abuse Program Coordinator Name Role Phone Anna Henry MD Primary Care Provider [phone] Allergies No known active allergies Medications ALPRAZolam (XANAX) 1 MG tablet Take 1 mg by mouth 2 (two) times a day if needed 12/21/19 20 Active atenolol (TENORMIN) 50 MG tablet Take 100 mg by mouth 1 (one) time each day 12/11/19 20 Active atorvastatin (LIPITOR) 40 MG tablet 01/03/20 20 Active clopidogrel (PLAVIX) 75 MG tablet 11/08/19 20 Active cyclobenzaprin e (FLEXERIL) 10 MG tablet 01/03/20 20 Active cyproheptadine (PERIACTIN) 4 MG tablet cyproheptadine 4 mg tablet TK 1 T PO QHS Active fenofibrate (TRICOR) 145 MG tablet fenofibrate nanocrystallized 145 mg tablet 1 po qday Active folic acid (FOLVITE) 1 MG tablet folic acid 1 mg tablet 1 po qday 10/15/19 20 Active metFORMIN (GLUCOPHAGE) 1000 MG tablet 11/08/19 20 Active methotrexate 2.5 MG tablet 01/01/20 20 Active Active Problems Problem Noted Date Diagnosed Date Diabetes mellitus 01/01/2020 Gastroesophageal reflux disease 01/01/2020 Hyperlipidemia 01/01/2020 Hypertensive disorder 01/01/2020 Vitamin D deficiency 01/01/2020 Nonspecific abnormal results of function study o f kidney 01/01/2020 Cobalamin deficiency 10/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 TIA 03/30/2013 Palpitations 03/30/2013 Immunizations Immunization Administration Dates Next Due Influenza TIV (IM) 11/05/2019 Influenza, Injectable, Quadrivalent 01/13/2016 Influenza, Injectable, Quadrivalent, Preservativ e Free 03/21/2017 Pneumococcal Conjugate 13-Valent 07/23/2017 Tdap 07/23/2017 Family History Medical History Relation Comments Kidney disease Neg Hx Social History Tobacco Use Types Packs/Day Years Used Date Smoking Tobacco: Former Smokeless Tobacco: Never Alcohol Use Standard Drinks/Week Comments Yes 0 (1 standard drink = 0.6 oz pur e alcohol) rare Sex and Gender Information Value Date Recorded Sex Assigned at Not on file Legal Sex Male 12:34 PM MDT Gender Identity Not on file Sexual Orientation Not on file Last Filed Vital Signs Vital Sign Reading Time Taken Comments Blood Pressure 130/70 01/11/2020 5:57 AM VIDEO GAME SCRIPT WRITER Pulse 84 01/11/2020 5:57 AM VIDEO GAME SCRIPT WRITER Temperature 36.7 C (98 F) 01/11/2020 5:57 AM VIDEO GAME SCRIPT WRITER Respiratory Rate - - Oxygen Saturation - - Inhaled Oxygen Concentration - - Weight 85.7 kg (189 lb) 01/11/2020 5:57 AM VIDEO GAME SCRIPT WRITER Height 177.8 cm (5' 10) 01/11/2020 5:57 AM VIDEO GAME SCRIPT WRITER Body Mass Index 27.12 01/11/2020 5:57 AM VIDEO GAME SCRIPT WRITER Plan of Treatment Health Maintenance Due Date Last Done Comments Influenza Vaccine (Season Ended) 2024 11/05/19 20, 03/21/2017 Insurance [facility] Care Teams Drug Abuse Program Coordinator Relationship Specialty Start Date End Date Anna Henry MD [address] [place] [address] [address] [place] [phone] PCP - General Internal Medicine 11/18/19
--- OUTSIDE RECORDS SUMMARY | 2024-07-02 09:22 | XMS_ITS | Data Portability ---
Author Organization [place] - [facility], Main Office Address [address] [place] [address] Care Team Providers Care Beverage Manager Name Role Phone LUZ ELENA PARKER Primary Care Provider LUZ ELENA PARKER Referring Provider TRACI HALEY Mixing Picker Tender [phone] Assessment Encounter Date Assessment Date Assessment LastModified by Organization Details LastModified Time 07/04/2023 07/04/2023 62-year-old male presents for follow-up of his right shoulder. We tried a course of conservative management with physical therapy anti-inflammator ies, and he reports feeling about the same. He still has discomfort, rated as 3/10, with activities of the shoulder. However he was recently diagnosed with lymphoma and the medications he was on have affect his kidneys. He has a follow-up appointment with his oncologist next week, and we will have a better idea of what the plan will be for that. ROM 130/30/lower lumbar. 5/5 Rotator cuff strength. Negative belly press, ER lag. Positive Mariposa. Positive Obriens. Positive Neer and Landis Given he has failed conservative management, the next step would be to get an MRI. We will keep him on the same work status. He should figure out what his oncology treatment plan is, and we will follow up with him after he obtains the scan and has a plan for that treatment. Not available 07/05/2023 18:14:58 07/25/2023 07/25/2023 63-year-old male presents for follow-up of his right shoulder. He reports he had some improvement the physical therapy and cortisone injection, but still has significant pain with certain motions including lifting and cross-body movements. He has followed up with his oncologist and follow-up tests show that he is cleared from his lymphoma. He is tenderness palpation over the AC joint, also anteriorly and laterally in the shoulder. Range of motion 130/30/back pocket. He has good rotator cuff resistance. Positive Osceola's. Positive speed, positive Neer and Landis, pain with AC compression MRI was reviewed, demonstrating AC joint arthrosis, slap tear with fluid around the biceps. Intact rotator cuff Given his persistent symptoms with conservative management, we discussed the next step would be to consider surgery for the shoulder. This would be an arthroscopy, debridement, biceps tenodesis, subacromial decompression, and distal clavicle excision. Risks, benefits, and alternatives to surgery were discussed with the patient. Risks include but are not limited to pain, stiffness, infection, bleeding, blood clot, injury to other structures including nerves or blood vessels, need for future surgery, and anesthesia risks. We discussed the goal of surgery is to improve symptoms but there is no guarantee of improvement and it is possible the patient's condition is worse after surgery. Patient agreed and would like to proceed. We discussed that his history of diabetes does put him at higher risk of complications, although he reports his most recent A1c was 6.2. Not available 07/25/2023 12:02:36 06/04/2024 06/04/2024 63-year-old male presents for follow-up of his right shoulder. He reports he had some improvement the physical therapy and cortisone injection, but still has significant pain with certain motions including lifting and cross-body movements. He is ready to proceed with surgery but has been waiting for workers comp approval. He has followed up with his oncologist and was cleared for surgery, his last A1c was 6.2. He is tenderness palpation over the AC joint, also anteriorly and laterally in the shoulder. Range of motion 130/30/back pocket. He has good rotator cuff resistance. Positive Osceola's. Positive speed, positive Neer and Landis, pain with AC compression MRI was reviewed, demonstrating AC joint arthrosis, slap tear with fluid around the biceps. Intact rotator cuff. XR reviewed, demonstrating mild glenohumeral arthritis, relatively preserved joint space. Given his persistent symptoms with conservative management, we discussed that we can proceed with surgery for the shoulder now that it has been approved. This would be an arthroscopy, debridement, biceps tenodesis, subacromial decompression, and distal clavicle excision. Risks, benefits, and alternatives to surgery were discussed with the patient. Risks include but are not limited to pain, stiffness, infection, bleeding, blood clot, injury to other structures including nerves or blood vessels, need for future surgery, and anesthesia risks. We discussed the goal of surgery is to improve symptoms but there is no guarantee of improvement and it is possible the patient's condition is worse after surgery. Patient agreed and would like to proceed. All questions were answered. [email or web address] Not available 06/05/2024 14:44:19 Plan of Treatment Reminders Order Date Submit Date Provider Last Modified By Organization Details Last Modified Time Details Appointments None recorded. Lab None recorded. Referral None recorded. Procedures None recorded. Surgeries None recorded. Imaging XR, shoulder, 2 or more view 2024 025 [email or web address] [facility], [address], [place], [address], 5 14:43:52 MRI, shoulder, w/o contrast - Please contact pt to schedule apt. 2023 024 [facility] ([facility]), [address] [place], [address], 4 15:01:26 Medication Orders amlodipine 5 mg tablet 2023 024 [id number], [address] , [place], [place], [id number], 4 08:55:11 Patient TargetsNo targets recorded. Patient InstructionsNo instructions recorded. Reason for Referral None Reported. Results Created Date Observation Date Name Description Value Unit Range Abnormal Flag Note LastModifiedBy Organization Detail LastModifiedTime 07/17/19 24 07/21/2023 DRUG SCREE N 16 W/CON F, UR creatinine 88 mg/dL REFER ENCE RANGE : Ref Range >=20 Not Available [facility] ([facility]) [address] [facility], [place], [address], 07/23/2023 06:07:36 07/17/19 24 07/21/2023 DRUG SCREE N 16 W/CON F, UR ethanol biomarkers ia Negati ve NG/mL cutoff :500 Not Available [facility] ([facility]) [address] [place], [address], 07/23/2023 06:07:36 07/17/19 24 07/21/2023 DRUG SCREE N 16 W/CON F, UR amphetamines ia Negati ve NG/mL cutoff :300 Not Available [facility] ([facility]) [address] [place], [address], 07/23/2023 06:07:36 07/17/19 24 07/21/2023 DRUG SCREE N 16 W/CON F, UR barbiturates ia Negati ve NG/mL cutoff :200 Not Available [facility] ([facility]) [address] [place], [address], 07/23/2023 06:07:36 07/17/19 24 07/21/2023 DRUG SCREE N 16 W/CON F, UR benzodiazepi cinthia ia COMMEN T NG/mL cutoff :50 Furth er testi ng indic ated Not Available [facility] ([facility]) [address] [place], [address], 07/23/2023 06:07:36 07/17/19 24 07/21/2023 DRUG SCREE N 16 W/CON F, UR cocaine metabolite ia Negati ve NG/mL cutoff :150 Not Available [facility] ([facility]) [address] [place], [address], 07/23/2023 06:07:36 07/17/19 24 07/21/2023 DRUG SCREE N 16 W/CON F, UR phencyclidin e ia Negati ve NG/mL cutoff :25 Not Available [facility] ([facility]) [address] [place], [address], 07/23/2023 06:07:36 07/17/19 24 07/21/2023 DRUG SCREE N 16 W/CON F, UR 6-acetylmorp ted ia Negati ve NG/mL cutoff :10 Not Available [facility] ([facility]) [address] [place], [address], 07/23/2023 06:07:36 07/17/19 24 07/21/2023 DRUG SCREE N 16 W/CON F, UR opiate class ia COMMEN T NG/mL cutoff :100 Furth er testi ng indic ated Not Available [facility] ([facility]) [address] [place], [address], 07/23/2023 06:07:36 07/17/19 24 07/21/2023 DRUG SCREE N 16 W/CON F, UR oxycodone class ia Negati ve NG/mL cutoff :100 Not Available [facility] ([facility]) [address] [place], [address], 07/23/2023 06:07:36 07/17/19 24 07/21/2023 DRUG SCREE N 16 W/CON F, UR methadone ia Negati ve NG/mL cutoff :100 Not Available [facility] ([facility]) [address] [place], [address], 07/23/2023 06:07:36 07/17/19 24 07/21/2023 DRUG SCREE N 16 W/CON F, UR fentanyl ia Negati ve NG/mL cutoff :2.0 Not Available [facility] ([facility]) [address] [place], [address], 07/23/2023 06:07:36 07/17/19 24 07/21/2023 DRUG SCREE N 16 W/CON F, UR buprenorphin e ia Negati ve NG/mL cutoff :5.0 Not Available [facility] ([facility]) [address] [place], [address], 07/23/2023 06:07:36 07/17/19 24 07/21/2023 DRUG SCREE N 16 W/CON F, UR tramadol ia Negati ve NG/mL cutoff :200 Not Available [facility] ([facility]) [address] [place], [address], 07/23/2023 06:07:36 07/17/19 24 07/21/2023 DRUG SCREE N 16 W/CON F, UR propoxyphene ia Negati ve NG/mL cutoff :300 Not Available [facility] ([facility]) [address] [place], [address], 07/23/2023 06:07:36 07/17/19 24 07/21/2023 DRUG SCREE N 16 W/CON F, UR tapentadol ia Negati ve NG/mL cutoff :200 Not Available [facility] ([facility]) [address] [place], [address], 07/23/2023 06:07:36 07/17/19 24 07/21/2023 DRUG SCREE N 16 W/CON F, UR nicotine metabolite Negati ve Not Available [facility] ([facility]) [address] [place], [address], 07/23/2023 06:07:36 07/17/19 24 07/21/2023 DRUG SCREE N 16 W/CON F, UR cotinine Not Detect ed NG/mL Not Available [facility] ([facility]) [address] [place], [address], 07/23/2023 06:07:36 07/17/19 24 07/21/2023 BENZO DIAZE PINES , MS, UR RFX benzodiazepi cinthia ++POSI TIVE++ abnormal Not Available [facility] ([facility]) [address] [place], [address], 07/23/2023 06:07:37 07/17/19 24 07/21/2023 BENZO DIAZE PINES , MS, UR RFX diazepam Not Detect ed NG/mg _crea t Not Available [facility] ([facility]) [address] [place], [address], 07/23/2023 06:07:37 07/17/19 24 07/21/2023 BENZO DIAZE PINES , MS, UR RFX desmethyldia zepam Not Detect ed NG/mg _crea t Not Available [facility] ([facility]) [address] [place], [address], 07/23/2023 06:07:37 07/17/19 24 07/21/2023 BENZO DIAZE PINES , MS, UR RFX oxazepam Not Detect ed NG/mg _crea t Not Available [facility] ([facility]) [address] [place], [address], 07/23/2023 06:07:37 07/17/19 24 07/21/2023 BENZO DIAZE PINES , MS, UR RFX temazepam Not Detect ed NG/mg _crea t Expec khang metab olism of benzo diaze pine class drugs : Paren t Drug Detec khang Metab olite s ----- ----- - ----- ----- ----- ----- Diaze shilpi: Desme thyld iazep am, Temaz epam, Oxaze shilpi Chlor diaze poxid e: Desme thyld iazep am, Oxaze shilpi Clora zepat e: Desme thyld iazep am, Oxaze shilpi Halaz epam: Desme thyld iazep am, Oxaze shilpi Temaz epam: Oxaze shilpi Oxaze shilpi: None Not Available [facility] ([facility]) [address] [facility], [place], [address], 07/23/2023 06:07:37 07/17/19 24 07/21/2023 BENZO DIAZE PINES , MS, UR RFX alprazolam 119 NG/mg _crea t Not Available [facility] ([facility]) [address] [facility], [place], [address], 07/23/2023 06:07:37 07/17/19 24 07/21/2023 BENZO DIAZE PINES , MS, UR RFX alpha-hydrox yalprazolam 294 NG/mg _crea t Not Available [facility] ([facility]) [address] [place], [address], 07/23/2023 06:07:37 07/17/19 24 07/21/2023 BENZO DIAZE PINES , MS, UR RFX desalkylflur azepam Not Detect ed NG/mg _crea t Not Available [facility] ([facility]) [address] [facility], [place], [address], 07/23/2023 06:07:37 07/17/19 24 07/21/2023 BENZO DIAZE PINES , MS, UR RFX lorazepam Not Detect ed NG/mg _crea t Not Available [facility] ([facility]) [address] [place], [address], 07/23/2023 06:07:37 07/17/19 24 07/21/2023 BENZO DIAZE PINES , MS, UR RFX alpha-hydrox ytriazolam Not Detect ed NG/mg _crea t Not Available [facility] ([facility]) [address] [place], [address], 07/23/2023 06:07:37 07/17/19 24 07/21/2023 BENZO DIAZE PINES , MS, UR RFX clonazepam Not Detect ed NG/mg _crea t Not Available [facility] ([facility]) [address] [place], [address], 07/23/2023 06:07:37 07/17/19 24 07/21/2023 BENZO DIAZE PINES , MS, UR RFX 7-aminoclona zepam Not Detect ed NG/mg _crea t Not Available [facility] ([facility]) [address] [place], [address], 07/23/2023 06:07:37 07/17/19 24 07/21/2023 BENZO DIAZE PINES , MS, UR RFX midazolam Not Detect ed NG/mg _crea t Not Available [facility] ([facility]) [address] [place], [address], 07/23/2023 06:07:37 07/17/19 24 07/21/2023 BENZO DIAZE PINES , MS, UR RFX alpha-hydrox ymidazolam Not Detect ed NG/mg _crea t Not Available [facility] ([facility]) [address] [place], [address], 07/23/2023 06:07:37 07/17/19 24 07/21/2023 BENZO DIAZE PINES , MS, UR RFX flunitrazepa m Not Detect ed NG/mg _crea t Not Available [facility] ([facility]) [address] [place], [address], 07/23/2023 06:07:37 07/17/19 24 07/21/2023 BENZO DIAZE PINES , MS, UR RFX desmethylflu nitrazepam Not Detect ed NG/mg _crea t Not Available [facility] ([facility]) [address] [place], [address], 07/23/2023 06:07:37 07/17/19 24 07/21/2023 OPIAT E CLASS , MS, UR RFX opiate class ++POSI TIVE++ abnormal Not Available [facility] ([facility]) [address] [place], [address], 07/23/2023 06:07:37 07/17/19 24 07/21/2023 OPIAT E CLASS , MS, UR RFX codeine Not Detect ed NG/mg _crea t Not Available [facility] ([facility]) [address] [facility], [place], [address], 07/23/2023 06:07:37 07/17/19 24 07/21/2023 OPIAT E CLASS , MS, UR RFX morphine Not Detect ed NG/mg _crea t Not Available [facility] ([facility]) [address] [facility], [place], [address], 07/23/2023 06:07:37 07/17/19 24 07/21/2023 OPIAT E CLASS , MS, UR RFX normorphine Not Detect ed NG/mg _crea t Not Available [facility] ([facility]) [address] [facility], [place], [address], 07/23/2023 06:07:37 07/17/19 24 07/21/2023 OPIAT E CLASS , MS, UR RFX norcodeine Not Detect ed NG/mg _crea t Not Available [facility] ([facility]) [address] [facility], [place], [address], 07/23/2023 06:07:37 07/17/19 24 07/21/2023 OPIAT E CLASS , MS, UR RFX hydrocodone 255 NG/mg _crea t Not Available [facility] ([facility]) [address] [place], [address], 07/23/2023 06:07:37 07/17/19 24 07/21/2023 OPIAT E CLASS , MS, UR RFX hydromorphon e Not Detect ed NG/mg _crea t Not Available [facility] ([facility]) [address] [facility], [place], [address], 07/23/2023 06:07:37 07/17/19 24 07/21/2023 OPIAT E CLASS , MS, UR RFX dihydrocodei ne 63 NG/mg _crea t Not Available [facility] ([facility]) [address] [facility], [place], [address], 07/23/2023 06:07:37 07/17/1907/21/2023 OPIAT E CLASS , MS, UR RFX norhydrocodo ne 409 NG/mg _crea t Expec khang metab olism of opiat e class drugs : Paren t Drug Detec khang Metab olite s ----- ----- - ----- ----- ----- ----- Codei ne: Major : Morph ine, Perrin deine Minor : Culleoka codon e, [place] morph one, Dihyd rocod eine, Norhy droco done, Normo rphin e Morph ine: Major : Normo rphin e Minor : [place]ulle[place] morph one [place] codon e: [place] morph one, Dihyd rocod eine, Norhy droco done [place] morph one: None Dihyd rocod eine: None Heroi n: 6-Joe tylmo rphin e (if inclu ded), Morph ine, Normo rphin e Codei ne, in small amoun ts in kj rison to morph ine, is often detec khang when heroi n is the sourc e drug. Not Available [facility] ([facility]) [address] [facility], [place], [address], 07/23/2023 06:07:37 07/04/19 24 07/03/2023 PET, skull base to mid-t high No observ ation record ed. [email or web address] [facility] [address], [place], [address], 07/30/2023 08:29:18 07/19/19 24 07/19/2023 MRI, tilaul marce, w/o contr ast No observ ation record ed. [email or web address] [facility] ([facility]) [address] [place], [address], 07/25/2023 15:39:49 07/19/19 24 07/19/2023 MRI, shoul marce, w/o contr ast No observ ation record ed. [email or web address] [facility] [address] [place], [address], 07/19/2023 23:43:01 01/20/20 24 01/20/2024 XR, chest , 2 view No observ ation record ed. [email or web address] [facility] [address] [place], [address], 03/13/2024 15:42:23 06/05/19 25 XR, shoul marce, 2 or more view No observ ation record ed. [email or web address] [facility] [place] [address], [place], [address], 06/05/2024 14:43:51 Result Notes None recorded. Problems Name Problem SNOMED Code Status Onset Date Resolution Date Notes Provider Name and Address Organization Details Recorded Time Pain of right shoulder joint 75868570888 493804 Active 2021 Not Available [employer] 3 16:56:22 Tendiniti s of right rotator cuff 01909112702 173482 Active 2021 Not Available [facility] 3 16:56:22 Dry skin 36867224 Active Not Available [facility] 3 16:56:22 Cobalamin deficienc y 359186219 Active 2019 Not Available [facility] 3 16:56:22 Insomnia 947650550 Active Not Available [facility] 3 16:56:23 Partial thickness rotator cuff tear 164293030 Active 2021 Not Available [facility] 3 16:56:23 Gastroeso phageal reflux disease 905446216 Active Not Available [facility] 3 16:56:23 Transient cerebral ischemia 475688606 Active Not Available [facility] 3 16:56:23 Eruption 779705096 Active Not Available [facility] 3 16:56:23 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 Active 2021 Not Available [facility] 3 16:56:23 Chronic otitis externa 76122236 Active Not Available [facility] 3 16:56:23 Upper respirato ry infection 23997894 Active Not Available [facility] 3 16:56:23 Hyperlipi demia 12383015 Active Not Available [facility] 3 16:56:24 Diabetes mellitus 72099054 Active Not Available [facility] 3 16:56:24 Strain of rotator cuff of shoulder 894841439 Active 2021 Not Available [facility] 3 16:56:24 Dental abscess 808599585 Active 2022 Anna Henry MD [address] [address], [place], [address] , [employer] [facility] [employer] [facility] 3 08:22:10 Essential hypertens ion 24456809 Active 2022 Anna Henry MD [address], [place], [address] , [employer] [facility] [employer] [facility] 3 08:28:58 Serum creatinin e above reference range 188576386 Active 2022 MD Yuliet Gan [address], [place], [address] , [employer] [facility] [employer] [facility] 3 07:48:10 Anxiety 13370554 Active 2022 MD Yuliet Gan [address], [place], [address] , [facility] [employer] [facility] 3 15:29:22 Leukocyto sis 675854549 Active 2022 Anna Henry MD [address] [facility] [facility] [address], [place], [address] , [facility] [employer] [facility] 3 08:46:44 Partial thickness rotator cuff tear 152035430 Active 2023 Anna Henry MD [address] [facility] [facility] [address], [place], [address] , [facility] [employer] [facility] 4 08:55:48 Traumatic rupture of rotator cuff 685656968 Active 2023 Anna Henry MD [address] [facility], [address] [address], [place], [address] , [facility] [employer] [facility] 4 08:57:00 Hypercalc emia 28471200 Active 2023 Anna Henry MD [address] [facility], [address] [address], [place], [address] , [facility] [employer] [facility] [employer] [facility] 4 14:03:54 Pain of right shoulder region Active 2024 GILA Hernandez, [facility] [employer] [facility] 5 15:23:55 Problem Notes None recorded. Procedures Surgical History Date Name Laterality Status Provider Name and Address Organization Details Recorded Time Unlisted px femur/knee completed Not Available [facility] 04/05/2022 16:55:33 Imaging Results None recorded. Procedure Notes None recorded. Medical Equipment None Reported. Allergies Allergen ID Allergen Name Allergen Category Reaction Reaction Severity Criticality Documentation Date Start Date Code Code System Note Provider Name and Address Organization Details Recorded Time 12470 Celebrex medicatio n chest pain moderate Not available 04/05/2022 76277 7 RxNorm Cause d extre me high BP in conju ction with other meds Not Available [facility] 3 16:57:41 Medications Name Sig Start Date Stop Date Status Note LastModified by Organization Details LastModified Time celecoxib 200 mg capsule Take 1 capsule every day by oral route. 10/12 completed Not Available Not Available Not Available cyclobenzap rine 10 mg tablet TAKE 1 TABLET BY MOUTH THREE TIMES DAILY NEEDED active Not Available Not Available No t Available atorvastati n 40 mg tablet TAKE 1 TABLET BY MOUTH EVERY NIGHT AT BEDTIME active Not Available Not Available No t Available silver sulfadiazin e 1 % topical cream APPLY A 1/16 INCH (1.5 MM) THICK LAYER TO ENTIRE AREA BY TOPICALRO IGIUGIG 2 TIMES PER DAY active Not Available Not Available No t Available prednisone 10 mg tablet 10/12 completed Not Available Not Available Not Available triamcinolo ne acetonide 0.5 % topical cream APPLY AA QID 01/12 completed Not Available Not Available Not Available azithromyci n 250 mg tablet active Not Available Not Available Not Available alprazolam 1 mg tablet TAKE 1 TABLET BY MOUTH TWICE DAILY NEEDED active Not Available Not Available No t Available ofloxacin 0.3 % eye drops INSTILL 1 DROP INTO AFFECTED EYE THREE TIMES A DAY DIRECTED TO BEGIN TWO DAYS PRIOR TO SURGERY active Not Available Not Available No t Available atenolol 100 mg tablet TK 1 T PO QD 04/09 completed Not Available Not Available Not Available valacyclovi r 1 gram tablet Take 1 tablet every 12 hours by oral route for 7 days. active Not Available Not Available No t Available hydrocodone 5 mg-acetamin ophen 325 mg tablet Take 1 tablet every 6-8 hours by oral route as needed for 7 days. active Not Available Not Available No t Available meloxicam 15 mg tablet TAKE 1 TABLET BY MOUTH EVERY DAY 05/28 completed Not Available Not Available Not Available bupivacaine HCl 0.5 % (5 mg/mL) injection solution Take 20 mg by injection route. 04/11 completed Not Available Not Available Not Available Alex Low Dose Aspirin 81 mg tablet,juan manuel yed release Take 1 tablet every day by oral route. 07/30 completed Not Available Not Available Not Available cyanocobala min (vit B-12) 1,000 mcg tablet TAKE 1 TABLET BY MOUTH EVERY DAY active Not Available Not Available No t Available triamcinolo ne acetonide 0.5 % topical ointment APPLY AA OF SKIN QID 01/12 completed Not Available Not Available Not Available clopidogrel 75 mg tablet TAKE 1 TABLET BY MOUTH DAILY 04/30 /2025 completed Not Available Not Available Not Available amlodipine 5 mg tablet TAKE 1 TABLET BY MOUTH DAILY active Not Available Not Available No t Available simvastatin 80 mg tablet active Not Available Not Available Not Available bexarotene 75 mg capsule 4 capsules BY ORAL ROUTE ONCE DAILY WITH A MEAL 07/04 completed Not Available Not Available Not Available sulfamethox azole 800 mg-trimetho prim 160 mg tablet TK 1 T PO BID active Not Available Not Available No t Available hydrocodone 10 mg-acetamin ophen 325 mg tablet TK 1 T PO QID PRN active Not Available Not Available No t Available ketorolac 0.5 % eye drops 04/13 completed Not Available Not Available Not Available prednisone 10 mg tablets in a dose pack Take 1 tab by mouth, 3 times a day for 3 daysTake 1 tab by mouth 2 times a day for 2 daysTake 1 tab by mouth once a day for 1 day 10/12 completed Not Available Not Available Not Available cyproheptad ine 4 mg tablet TK 1 T PO QHS 04/13 completed Not Available Not Available Not Available alprazolam 0.5 mg tablet Take 1 tablet 3 times a day by oral route as needed. active Not Available Not Available No t Available amoxicillin 875 mg tablet Take 1 tablet every 12 hours by oral route for 7 days. active Not Available Not Available No t Available prednisolon e acetate 1 % eye drops,suspe nsion INSTILL 1 DROP INTO AFFECTED EYE THREE TIMES A DAY BEGIN AFTER SURGERY 04/13 completed Not Available Not Available Not Available methotrexat e sodium 2.5 mg tablet TAKE 8 TABLETS BY MOUTH ONCE A WEEK active Not Available Not Available No t Available Kenalog 10 mg/mL suspension for injection Take 20 mg by injection route. 04/11 completed [facility]: [phone] Not Available Not Available Not Available levothyroxi ne 50 mcg tablet TK 1 T PO D 11/03 completed Not Available Not Available Not Available cephalexin 500 mg capsule TK ONE C PO BID 02/09 completed Not Available Not Available Not Available metformin 1,000 mg tablet TAKE 1 TABLET BY MOUTH TWICE DAILY active Not Available Not Available No t Available triamcinolo ne acetonide 0.1 % topical ointment Apply 1 applicati on twice a day by topical route as needed for 14 days. active Not Available Not Available No t Available ranitidine 150 mg tablet TAKE ONE TABLET BY MOUTH TWICE DAILY 04/13 completed Not Available Not Available Not Available cephalexin 500 mg tablet Take 1 tablet twice a day by oral route for 7 days. 02/09 completed Not Available Not Available Not Available folic acid 1 mg tablet TAKE 1 TABLET BY MOUTH EVERY DAY 04/25 completed Not Available Not Available Not Available lisinopril 5 mg tablet TK 1 T PO QAM 04/13 completed Not Available Not Available Not Available hydrochloro thiazide 25 mg tablet TK 1 T PO QD active Not Available Not Available No t Available lidocaine HCl 20 mg/mL (2 %) injection solution Take 40 mg by injection route. 10/12 completed Not Available Not Available Not Available levofloxaci n 500 mg tablet Take 1 tablet every 24 hours by oral route for 7 days. active Not Available Not Available No t Available zolpidem 10 mg tablet TK 1 T PO QD HS PRN INSOMNIA 04/13 completed Not Available Not Available Not Available fluticasone propionate 50 mcg/actuati on nasal spray,suspe nsion Novato 1 spray every day by intranasa l route for 30 days. 04/13 completed Not Available Not Available Not Available lisinopril 2.5 mg tablet TK 1 T PO QD active Not Available Not Available No t Available atenolol 50 mg tablet TAKE 2 TABLETS BY MOUTH EVERY DAY 06/04 completed Not Available Not Available Not Available amoxicillin 875 mg-potassiu m clavulanate 125 mg tablet TAKE 1 TABLET BY MOUTH EVERY 12 HOURS FOR 7 DAYS 10/05 completed Not Available Not Available Not Available neomycin-po lymyxin-hyd rocort 3.5 mg-10,000 unit/mL-1 % ear drops,susp INSTILL 3 DROPS TO THE EAR TID FOR 7 DAYS active Not Available Not Available No t Available cyclobenzap rine 5 mg tablet 1 po tid prn 04/13 completed Not Available Not Available Not Available metoprolol tartrate 25 mg tablet TAKE 3 TABLETS BY MOUTH TWICE DAILY 06/04 completed Not Available Not Available Not Available methotrexat e 7 per week 07/30 completed Not Available Not Available Not Available lidocaine (PF) 5 mg/mL (0.5 %) injection solution Take 30 mg by injection route. 10/12 completed Not Available Not Available Not Available fenofibrate nanocrystal lized 145 mg tablet 1 po qday 04/13 completed Not Available Not Available Not Available ropivacaine (PF) 5 mg/mL (0.5 %) injection solution Take 20 mg by injection route. 10/12 completed [facility] [phone] Not Available Not Available Not Available Eliquis 5 mg tablet TAKE 1 TABLET BY MOUTH TWICE DAILY active Not Available Not Available No t Available metoprolol tartrate 75 mg tablet TAKE 1 TABLET BY MOUTH TWICE DAILY active Not Available Not Available No t Available Vitals Date Recorded Body height Body mass index (BMI) Body weight Provider Name and Address Organization Details Last Updated DateTime 06/04/2024 182.88 cm 29.2 kg/m2 50598.36 g GILA Hernandez [facility] [employer] [facility] 06/04/2024 15:21:04 Date Recorded Body height Body mass index (BMI) Body weight Provider Name and Address Organization Details Last Updated DateTime 07/04/2023 182.88 cm 27.1 kg/m2 65591.47 g Christina Ortega CNA [facility] [employer] [facility] 07/04/2023 14:40:24 Date Recorded Body height Provider Name an d Address Organization Details Last Updated DateTime 07/17/2023 182.88 cm Em Livingston RN [facility] I L [employer] [facility] 07/17/2023 10:42:04 Date Recorded Body height Body mass index (BMI) Body weight Provider Name and Address Organization Details Last Updated DateTime 07/25/2023 182.88 cm 27.1 kg/m2 69339.47 g Elizabeth Chi Aly [facility] [employer] [facility] 07/25/2023 11:14:17 Date Recorded Body height Body mass index (BMI) Body weight Body temperature Heart rate Oxygen saturation Oxygen saturation in Arterial blood by Pulse oximetry Systolic blood pressure Diastolic blood pressure Provider Name and Address Organization Details Last Updated DateTime 182.88 cm 27.4 kg/m2 00896.6 6 g 98.5 [degF] 69 /min 100 % 100 % 138 mm[Hg] 86 mm[Hg] KEITH Buitrago - [facility] [place] [employer] 08:40:59 Social History Question Answer Notes LastModified by [email or web address] Details LastModified Time Tobacco Smoking Status Former Smoker Christinaaddy OrtegaDESI, [facility] [employer] 10/05/2022 14:40:41 In The 14 Days Before Symptom Onset, Have You Had Close Contact With A Laboratory-confir med COVID-19 While That Case Was Ill? No [id number] Information not available 04/05/2022 In The 14 Days Before Symptom Onset, Have You Had Close Contact With A Person Who Is Under Investigation For COVID-19 While That Person Was Ill? No [id number] Information not available 04/05/2022 What Type Of Diet Are You Following? REGULAR [id number] Information not available 04/05/2022 When Did You Quit Smoking? 15+yearssin celastcigar ette 35 Years Ago [email or web address] Information not available 10/05/2022 What Was The Date Of Your Most Recent Tobacco Screening? 06/04/2024 [email or web address] Information not available 06/04/2024 Sex: Unknown Functional Status Question Answer Note LastModified by [email or web address] Details LastModified Time What is your level of alcohol consumption? 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 Family History Relationship Description Onset Age of this Age Resolved Age Notes LastModified by Organization Details LastModified Time Brother Congestive heart failure 64 [email or web address] Not available 07/24 11:13:17 Sister Dementia [email or web address] Not availab le 07/25/2023 11:13:17 Sister Myocardial infarction 73 [email or web address] Not available 04/11 08:33:43 Mother Heart disease [email or web address] Not available 2022 14:39:40 Mother Family history of stroke [email or web address] Not available 07/24 11:13:17 Medical History Condition Response DIABETES, TYPE Y CANCER: SPECIFY Y ARTHRITIS Y USE OF BLOOD THINNERS Y HEART ARRHYTHMIA Y STROKE/TIA Y Immunizations Vaccine Type Date Status Note Provider Nam e and Address Organization Details Recorded Time Influenza, split virus, quadrivalent, PF 3 completed Kristie Lewis RN [facility], MD - [facility] 10/12/2022 08:27:15 Pneumococcal conjugate PCV 13 8 completed Not Available [facility] 04/05/2022 16:57:40 Tdap 8 completed Not Available [facility] 04/05/2022 16:57:40 Influenza, split virus, quadrivalent, PF 8 completed Not Available [facility] 04/05/2022 16:57:40 Influenza, split virus, quadrivalent, preservative 6 completed Not Available [facility] 04/05/2022 16:57:40 Past Encounters Encounter ID Performer Location Encounter Start Date Encounter Closed Date Diagnosis/Indication Diagnosis SNOMED-CT Code Diagnosis ICD10 Code Diagnosis Note [id number] DIONNE Aguilar [facility] Primary [facility] [place] [address] [facility] [place] [address] 10/25/2020 00:00:00 10/25/2020 17:10:16 [id number] DIONNE Aguilar [facility] Primary [facility] [place] [address] [place] [address] 03/18/2021 00:00:00 03/18/2021 09:57:34 [id number] Anna Henry MD [facility] Primary [facility] [place] [address] [place] [address] 04/12/2021 00:00:00 04/12/2021 09:52:23 [id number] Randall Jacobs MD [facility] [place] [address] [place] [address] 04/13/2021 00:00:00 04/13/2021 12:26:34 [id number] Randall Jacobs MD [facility] [place] [address] [place] [address] 05/17/2021 00:00:00 05/17/2021 16:01:04 [id number] Randall Jacobs MD [facility] [place] [address] [place] [address] 06/30/2021 00:00:00 06/30/2021 13:05:38 [id number] Randall Jacobs MD [facility] [place] [address] [place] [address] 07/28/2021 00:00:00 07/28/2021 11:15:49 [id number] Randall Jacobs MD [facility] [place] [address] [place] [address] 08/25/2021 00:00:00 08/25/2021 09:16:12 [id number] Anna Henry MD [facility] Primary [place] [address] [place] [address] 10/12/2021 00:00:00 10/12/2021 08:32:38 [id number] Anna Henry MD [facility] [place] [address] [place] [address] 04/12/2022 08:05:11 04/12/2022 08:42:06 Dental abscess 933237612 K04.7 has upcoming appt with dentistcou nseled pt to decrease his methotrexa te to 6 tabs per week for 2 weeks due to potential interactio n with the abxhydroco done/apap prn pain x 4 days, do not take before driving/wo rkingPt understand s this medication has risk for abuse/depe ndence and agrees to take it only as prescribed and to guard from loss/theft Diabetes mellitus 860732 09 E11.21 check labscontin ue current meds Hyperlipidemia 63943270 E78.5 Z79.899 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 [place] [address] 10/05/2022 14:18:04 10/05/2022 15:57:37 Pain of right shoulder joint 7706380046 6040021 M25.511 Partial th ickness rotator cuff tear 157129964 M75.101 Osteoarthr itis of joint of right shoulder region 0055041362 77575 M19.129 [id number] Anna Henry MD [facility] Primary Care [facility] [address] [facility] [address] [place] [address] 10/12/2022 07:57:19 10/12/2022 08:26:19 Essential hypertension 85816902 I10 check home blood pressures 2x per weekcontin ue current medscheck cbc and bmp Administra tion of influenza vaccine 33338448 Z23 Renewal of prescription 081770228 Z76.0 [id number] Anna Henry MD [facility] Care [facility] [address] [facility] [address] [place] [address] 12/07/2022 12:07:36 12/25/2022 15:11:25 [id number] Ignacio Parmar MD [facility] [place] [address] [place] [address] 03/01/2023 13:41:36 03/01/2023 15:57:58 Pain of right shoulder joint 8726840848 9153942 M25.511 Partial th ickness rotator cuff tear 843073952 M75.101 Osteoarthr itis of joint of right shoulder region 0939992097 59850 M19.532 [id number] Anna Henry MD [facility] Care [facility] [address] [facility] [address] [place] [address] 04/12/2023 07:54:52 04/12/2023 09:11:29 Cobalamin deficiency 863475646 E53.8 Diabetes mellitus 246460 09 E11.21 check labscontin ue metformin 1000 mg bid Essential hypertension 69506594 I10 check home blood pressures 2x per weekcontin ue current medscheck cbc and bmp Hyperlipidemia 64413451 E78.5 Z79.899 Vitamin D deficiency 347 48571 E55.9 Adult heal th examination 654100058 Z00.00 get colonoscop y recordsPne umovax 23 done 2015Tdap 2018Prevna r 13 2018Flu vaccine yearlyReco mmend shingles vaccine seriesReco mmend covid boosterPne umovax 23 again at age 64 Traumatic rupture of rotator cuff 996574565 S46.091S M19.011 out of work until releasedun marce care [facility] orthoc[facility]i nue home exercise [id number] Anna Henry MD [facility] Primary [facility] [place] [address] [place] [address] 04/13/2023 15:31:31 04/13/2023 15:57:14 [id number] Cristian Ta MD [facility] [place] [address] [place] [address] 05/02/2023 09:15:38 05/02/2023 10:06:33 Pain of right shoulder joint 1065896660 9662251 M25.910 [id number] Anna Henry MD [facility] Primary [facility] [place] [address] [place] [address] 05/29/2023 08:21:16 05/29/2023 09:12:08 Essential hypertension 53831042 I10 In good control per home readingsf/ u in 8 weeks Partial th ickness rotator cuff tear 963924775 M75.101 Out of work until releasedco mplete PThas MRI scheduled for further evaluation [id number] Cristian Ta MD [facility] [place] [address] [place] [address] 07/04/2023 14:31:05 07/04/2023 15:39:15 Pain of right shoulder joint 2363309437 3102421 M25.944 [id number] CANDICE Gar [facility] Primary [facility] [place] [address] [place] [address] 07/17/2023 10:37:41 07/17/2023 10:59:04 [id number] Cristian Ta MD [facility] [place] [address] [place] [address] 07/25/2023 11:12:18 07/25/2023 12:03:49 Pain of right shoulder joint 3426941235 8855168 M25.975 [id number] CANDICE Gar [facility] [place] [address] [place] [address] 07/31/2023 08:31:25 07/31/2023 09:01:20 Essential hypertension 42136658 I10 -bp 138/86, 69 no peguero cp sob-drinks plenty of water/day Partial th ickness rotator cuff tear 950236973 M75.101 -has stopped therapy per Dr. Kaya serna awaiting workman's comp for surgery approval-c ontinue f/u with Dr. Hansen ue to be out of work [id number] Cristian Ta MD [facility] [place] [address] [place] [address] 06/04/2024 14:55:23 06/04/2024 15:55:44 Pain of right shoulder region 5374881731 M25.511 Health Concerns Section Related Observation LastModified by Organization Detai ls LastModified Time None Recorded Concern Status LastModified by Organization Details LastModified Time None Recorded Advance Directives Directive None Recorded Payers Encounter Date Sequence Insurance Name Policy Number Policy Marie Covered Member ID Marie Member ID Guarantor Name 07/04/2023 [facility] [employer] Ham Fregoso Moreno 07/17/2023 1 [facility] [id number] Ham Moreno [id number] Ham Moreno 07/25/2023 [email or web address] Ham Fregoso Josh 07/31/2023 1 [facility] [id number] Ham Moreno [id number] Ham Anusha Josh 06/04/2024 [facility] [employer] Ham Moreno Notes Date Note Type Note Provider Name and Address Organization Details Recorded Time 07/31/2023 text/html pt is here for f/u CANDICE Gar [address] [facility], [place], [address], [place] [employer] [facility] 08/02/2023 17:29:05
--- OUTSIDE RECORDS SUMMARY | 2024-07-02 09:22 | XMS_ITS | Encounter Summary ---
Author Organization [facility] Address [address] [place] [address] Care Team Providers Care Data Security Coordinator Name Role Phone Anna Henry MD Primary Care Provider + Encounter Details Date Type Department Care Team (Late st Contact Info) Description 07/01/2024 External Device Data [place] ABSTRACTION Provider, Abstract NO ADDRESS ON FILE Social History Tobacco Use Types Packs/Day Years Used Date Smoking Tobacco: Former Cigarettes 1 12 0 09/11/1975 - 09/11/1987 Smokeless Tobacco: Never Alcohol Use Standard Drinks/Week Comments No 0 (1 standard drink = 0.6 oz pur e alcohol) Sex and Gender Information Value Date Recorded Sex Assigned at Not on file Legal Sex Male 4:10 PM CDT Gender Identity Not on file Sexual Orientation Not on file documented as of this encounter Plan of Treatment Upcoming Encounters Date Type Department Care Team (Late st Contact Info) Description 07/17/2024 10:15 AM CDT Office Visit [facility] Oncology and Hematology - [place] [address] [facility] [address] [place] [address] Victor Manuel Whittington MD [address] [facility] [address] [place] [address] documented as of this encounter Visit Diagnoses Not on filedocumented in this encounter Care Teams Data Security Coordinator Relationship Specialty Start Date End Date Anna Henry MD [address] [place] [address] [place] [id number] PCP - General Family Practice 09/10/17 documented as of this encounter
--- OUTSIDE RECORDS SUMMARY | 2024-07-02 09:22 | XMS_ITS | Continuity of Care Document ---
Author Organization [facility] Address [address] [place] [address] [place] [address] Phone Care Team Providers Care Doctor Naturopathic Name Role Phone Enoch Carter MD Unavailable Unavailable Allergies, Adverse Reactions, Alerts Substance Reaction Status Criticality celecoxib Heart rate increased, within normal range Active No Information Medications Medication Instructions Dosage Effective Dates (start - stop) Status Comments Xanax 1 mg tablet take 1 tablet by oral route 2 times every day as needed 1 MG - Active PRN for anxiety, avoid driving or operate machines cyclobenzaprine 10 mg tablet take 1 tablet by oral route 3 times every day as needed 10 MG - Active avoid drivin g or operate machines metoprolol tartrate 25 mg tablet take 3 tablet by oral route 2 times every day 75 MG - Active metformin 1,000 mg tablet take 2 tablet by oral route every day with morning and evening meals 2000 MG - Active Lipitor 40 mg tablet take 1 tablet by oral route every day 40 MG - Active Norvasc 5 mg tablet take 1 tablet by oral route every day 5 MG - Active Eliquis 5 mg tablet take 1 tablet by oral route 2 times every day 5 MG - Active methotrexate sodium 2.5 mg tablet take 6 tablet by oral route every week 15 MG - Active Procedures Procedure Date OFFICE/OUTPATIENT VISIT, EST OFFICE/OUTPATIENT VISIT, EST OFFICE/OUTPATIENT VISIT, EST OFFICE/OUTPATIENT VISIT, EST OFFICE/OUTPATIENT VISIT, EST Advance Directives Directive Yes / No Effective Date File Name No Information Encounters Encounter Description Practice Location Reason(s) For Visit Diagnoses Date Provider Providers Copied on Encounter OFFICE/OUTPA TIENT VISIT, [facility], [address] [place], [place], [id number], tel:[phone] [facility] back pain1 (chief complaint) anxiety1 (chief complaint) Chronic pain syndromeGeneralized Anxiety Disorder 5 Raul Kendall. [address] [place], [place], [id number] , [place]. tel:[phone] OFFICE/OUTPA TIENT VISIT, [facility], [address], [place], [id number], tel:[phone] [facility] anxiety1 (chief complaint) back pain1 (chief complaint) HTN (chief complaint) colon polyp1 (chief complaint) Chronic pain syndromeGeneralized Anxiety DisorderPolyp of colonEssential (primary) hypertension May-3 5 Raul Kendall. [address], [place], [id number] , [place]. [phone] OFFICE/OUTPA TIENT VISIT, [facility], [address], [place], [id number], [place] tel:[phone] [facility] anxiety1 (chief complaint) back pain1 (chief complaint) colon1 (chief complaint) anemia1 (chief complaint) AnemiaChronic pain syndromeGeneralized Anxiety DisorderPolyp of colonHypomagnesemia May-0 5 Raul Kendall. [address], [id number] , [place]. [phone] OFFICE/OUTPA TIENT VISIT, [facility], [address] [place], [place], [id number], [place] tel:[phone] [facility] anxiety1 (chief complaint) back pain1 (chief complaint) afib (chief complaint) DM (chief complaint) anemia1 (chief complaint) Atrial fibrillationEssenti al (primary) hypertensionGeneral ized Anxiety DisorderChronic pain syndromeType 2 diabetes mellitus without complicationsAnemia Hypomagnesemia 5 Raul Kendall. [address], [place], [place], [id number] , [place]. tel:[phone] OFFICE/OUTPA TIENT VISIT, EST [facility], [address] [place], [place], [id number], [place] tel:[phone] [facility] afib (chief complaint) anxiety1 (chief complaint) back pain1 (chief complaint) T cell (chief complaint) DM (chief complaint) Type 2 diabetes mellitus without complicationsMixed hyperlipidemiaEssen tial (primary) hypertensionGeneral ized Anxiety DisorderChronic pain syndromeAtrial fibrillationAdult T-cell leukemiaPrsnl hx of TIA (TIA), and cereb infrc w/o resid deficits Fe 5 Raul Kendall. [address], [place], [place], [address] , [place]. tel:[phone] Family History Family Member Type Diagnosis Age At Onset Mother Problem of CAD 80 Father Problem of 89 pneumonia Brother Problem of CAD 64 Payers Payer name Insurance type Covered republican ID [facility] niya(s) [facility] [id number] Social History Type Description Quantity Date Captured Comments Alcohol Use Details No Caffeine Use Details Unknown Tobacco Use Status Ex-cigarette smoker 025 Smoking Status Former smoker Sex Male Vital Signs Date / Time: Height Weight BMI Pulse Rate Blood Pressure Temperature Respiratory Rate Body Surface Area Head Circumference BMI percentile Pulse Ox Inhaled Ox 9:17 AM 72.00 in 221.40 lbs 30.0 3 kg/m eter (2) 72 /min 130/80 mm[Hg] 97.2 F 16 /min Chief Complaint And Reason For Visit From encounter dated '07/02/2024 09:17'. back pain1 (chief complaint). Description: Pt has chronic low back pain due to DDD Pt takes flexeril PRn and doing ok. Pt denies any loss of bowel or bladder control or saddle area paresthesia. Pt has mild sciatica symptoms anxiety1 (chief complaint). Description: Pt has chronic anxiety Pt denies any depression or any suicidal or homicidal thought pt denies any crying spells Pt takes xanax PRn and doing ok Plan Of Treatment Date Type Action Status Referral Ordered: LUMBAR XRAY AP AND LAT ONLY ordered Referral Ordered: COLONOSCOPY AND BIOPSY ordered Appointment Oscar Moreno BOOKED History Of Present Illness Encounter Date Complaint History Of Prese nt Illness back pain1 Pt has chronic l ow back pain due to DDD Pt takes flexeril PRn and doing ok. Pt denies any loss of bowel or bladder control or saddle area paresthesia. Pt has mild sciatica symptoms anxiety1 Pt has chronic a nxiety Pt denies any depression or any suicidal or homicidal thought pt denies any crying spells Pt takes xanax PRn and doing ok anxiety1 Pt has chronic a nxiety Pt denies any depression or any suicidal or homicidal thought pt denies any crying spells Pt takes xanax PRn and doing ok back pain1 Pt has chronic l ow back pain due to DDD Pt takes flexeril PRn and doing ok. Pt denies any loss of bowel or bladder control or saddle area paresthesia HTN Pt has HTN pt ta kes norvasc and metoprolol and his bp is ok colon polyp1 Pt has colon robin yp 10 years ago Pt denies any Gi issue Pt has [facility] for colonoscopy next week anxiety1 Pt has chronic a nxiety Pt denies any depression or any suicidal or homicidal thought pt denies any crying spells Pt takes xanax PRn and doing ok back pain1 Pt has chronic l ow back pain due to DDD Pt takes flexeril PRn and doing ok. Pt denies any loss of bowel or bladder control or saddle area paresthesia colon1 Pt has history o f colon polyp Pt tod me he went to [place] and found out that his last colonoscopy was over 10 years ago with some type of polyp Pt denies any GI symptoms anemia1 Pt has mild anem ia. Pt denies any blood loss. anxiety1 Pt has chronic a nxiety Pt denies any depression or any suicidal or homicidal thought .Pt denies any crying spells .Pt takes xanax PRn back pain1 Pt has chronic l ow back pain with sciatica .pt denies any loss of bowel or bladder control or saddle area paresthesia Pt takes flexeril PRn DM pt is on metform in Pt does not want to check BG at home anemia1 Pt has mild anem ia and low mag Pt was replaced in hospital .Pt denies any chest pain or palpitation afib Pt is on norvasc and metformin and eliquis and ASA Pt is off plavix. pt denies any chest pain Pt was told to follow up with cardiology around July. he had negative cardiac echo and carotid doppler. Pt also wore cardiac event monitor which did not show recurrent afib per patient. He is off diltiazem. afib Pt was recently admitted to hospital for acute new onset of afib. pt is on eliquis now Pt also has history of TIA. He is on plavix, metoprolol, norvasc He sees cardiology pt denies any chest pain or palpitation or sob anxiety1 Pt has chronic a nxiety Pt denies any depression or any suicidal or homicidal thought .Pt denies any crying spells .Pt takes xanax PRn back pain1 Pt has chronic l ow back pain with sciatica .pt denies any loss of bowel or bladder control or saddle area paresthesia Pt takes flexeril PRn Pt was getting norco here and there by previous MD. T cell Pt has T cell ly mphoma. Pt is seeing oncologist and he is on methotrexate. DM Pt has DM Pt is only on metformin His a1c is around 7.3 Instructions Date Instruction Additional Infor mation No Information Assessments Type Assessment Date assessment Chronic pain syndrome assessment Generalized Anxiety Disorder June Mental Status Date Cognitive Assessment Orientation - Cranks ed to time, place, person, situation.
--- OUTSIDE RECORDS SUMMARY | 2024-07-02 09:22 | XMS_ITS | CONTINUITY OF CARE DOCUMENT ---
Author Name margoth justin Address Unknown Organization [facility] Address [address] [address] [place] [address] Phone [phone] Care Team Providers Care Teacher Adventure Education Name Role Phone Abdirashid Tatum MD Unavailable [phone] SASHA CARTER MD Unavailable SASHA CARTER MD Unavailable [phone] PROBLEMS Condition Status Date Provider Notes HTN ESSENTIAL active ? Abdirashid Tatum MD CHEST PAIN-TYPE TO BE DETERMINED active ? Abdirashid Tatum MD HYPERCHOLESTEROLEMIA active ? Abdirashid Tatum MD DIABETES MELLITUS active ? Abdirashid Tatum MD PALPITATIONS active Abdirashid Tatum MD TIA active Abdirashid Tatum MD Cardiology examination active Connor Merino MD ENCOUNTERS Date Type Provider Location Encounter Diag nosis - In-person encounter Office Visit Connor Merino MD [facility] Cardiology examination - In-person encounter Office Visit Abdirashid Tatum MD [facility] HTN ESSENTIALCHEST PAIN-TYPE TO BE DETERMINEDHYPERCHOLESTEROLEMIADIABETES MELLITUSPALPITATIONSTIA VITAL SIGNS Date Observation Value Provider Body Mass Index (Ratio) 27.53 kg/m2 Arian Merino MD blood pressure, diastolic 87 mm[Hg] Eduarda Hurtado blood pressure, systolic 124 mm[Hg] Nikole Hurtado oxygen saturation, oximetry 97 % Maame Hurtado pulse rate 76 /min Maame Hurtado respiratory rate E&M 12 /min Maame Hurtado weight E&M 203 [lb_av] Maame Bryant height E&M 72 [in_i] Maame Hurtado blood pressure, cuff size regular Eduarda Hurtado ALLERGIES No Known Drug Allergies HISTORY OF MEDICATION USE Medication Status Instructions Dates Provider Indications Com ments Eliquis 5 mg tablet active TAKE 1 TABLE T BY MOUTH TWICE DAILY Gus Benz RN cyclobenzaprine 10 mg tablet active TAKE 1 TABLET BY MOUTH THREE TIMES A DAY NEEDED FOR MUSCLE SPASM Connor Merino MD amlodipine 5 mg tablet active Take TAKE 1 TABLET BY MOUTH EVERY DAY Connor Merino MD methotrexate sodium 2.5 mg tablet active 8 tablets once a week Connor Merino MD atorvastatin 40 mg tablet active TAKE 1 TABLET DAILY Connor Merino MD metformin 1,000 mg tablet active 1 tablet twice a day Connor Merino MD metoprolol tartrate 75 mg tablet active Take 1 tablet by mouth twice a day Anna Calderon omeprazole 20 mg tablet,delayed release (DR/EC) completed tablet by mouth - Connor Merino MD alprazolam 1 mg tablet active tablet by mouth three times a day Connor Merino MD atenolol 100 mg tablet completed once a day - Connor Merino MD simvastatin 80 mg tablet completed 1 tablet by mouth every night - Connor Merino MD hydrochlorothiazide 25 mg tablet active 1 tablet by mouth once a day Connor Merino MD aspirin 325 mg tablet active 1 tablet b y mouth once a day Connor Merino MD SOCIAL HISTORY Date Observation Value Provider drug use no Connor Banks alcohol use no Connor Banks passive cigarette smoke exposure no Connor Merino MD smoking status Former smoker Connor garcia MD social history E&M Marital Status: Divorc ed Abdirashid Tatum MD drug use no Gus Benz RN passive cigarette smoke exposure no Gus Benz RN smoking, year quit 1997 Gus olivas RN caffeine use, averag e drinks per day yes Gus Benz RN smoking status former smoker Gus Benz R N social history reviewed E&M reviewed Gus Benz RN MENTAL STATUS Date Observation Value Provider assessment of judgme nt and insight E&M Alert and oriented to time, place and person. Mood and affect are normal. Gus Benz RN INSURANCE PROVIDERS Payer name Policy type / Coverage type [place] red republican ID [facility] Medicaid 2 [id number] ADVANCE DIRECTIVES Name Date DISCUSSED - NO DECISION MADE TREATMENT PLAN Date Name Performer Cardiology Connor Merino MD Cardiology Connor Merino MD Cardiology Connor Merino MD Cardiology Connor Merino MD Date Name Mobile Cardiac Tele HISTORY OF PROCEDURES Procedure Date Procedure Name Provider Procedure Notes S tatus EKG Connor Merino MD complete d EKG Abdirashid Tatum MD completed
== END 2024-07-02 09:19 | disposition home or self-care (01) ==
PROVIDERS: PCP Emergency Medicine; Visit Provider Emergency Medicine
DX: G89.4 Chronic pain syndrome (principal); M47.896 Other spondylosis, lumbar region
CPT/HCPCS: 72100

== ENCOUNTER 2024-07-17 09:41 | Outpatient (CLI) | payer MEDICARE, OTHER, SELFPAY ==
[2024-07-17 09:59] LABS: Basophils Percent Auto 0.5 % (0.2-1.2); Eosinophils Absolute Auto 0.2 K/mm3 (0-0.3); Eosinophils Percent Auto 1.8 % (0-4.4); Hematocrit 35.2 % (42.0-52.0); Hemoglobin 11.2 g/dL (14.0-18.0); Immature Granulocyte Absolute 0.02 K/mm3 (0.00-0.031); Immature Granulocyte Percent A 0.2 % (0-0.5); Lymphocytes Absolute Auto 2.12 K/mm3 (0.9-3.2); Lymphocytes Percent Auto 25.5 % (18.3-44.2); Mean Corpuscular HGB Conc 31.8 g/dl (32-36); Mean Corpuscular Hemoglobin 30.6 pg (26-34); Mean Corpuscular Volume 96.2 fl (80-100); Mean Platelet Volume 9.9 fl (7.4-10.4); Monocytes Absolute Auto 0.7 K/mm3 (0.1-0.6); Monocytes Percent Auto 8.3 % (2.6-8.5); Neutrophils Absolute Auto 5.3 K/mm3 (1.3-6.7); Neutrophils Percent Auto 63.7 % (45.5-73.1); Platelet Count Result 285 k/mm3 (150-375); Red Blood Count 3.66 M/mm3 (4.6-6.20); Red Cell Distribution Width 14.2 % (11.5-14.5); White Blood Count 8.3 K/mm3 (4.5-10.0)
[2024-07-17 10:02] LABS: Blood Urea Nitrogen 30 mg/dL (8-26); Carbon Dioxide 23 mmol/L (22-30); Chloride 107 mmol/L (98-109); Estimated Glomerular Filt Rate 41; Glucose 134 mg/dL (70-105); Ionized Calcium (POC) 1.29 mmol/L (1.11-1.31); Potassium 4.8 mmol/L (3.5-4.9); Sodium 143 mmol/L (138-146)
--- OUTSIDE RECORDS SUMMARY | 2024-07-17 10:24 | XMS_ITS | Clinical Summary ---
Author Organization [facility] Address [address] [place] [address] Care Team Providers Care Laboratory Inspector Name Role Phone Enoch Carter MD Primary Care Provider [phone] Allergies Active Allergy Reactions Criticality Noted Date [...] Encounters Date Type Department Care Team Description 07/17/2024 10:15 AM CDT Office Visit [facility] Oncology and Hematology [facility] [address] [place] [address] Victor Manuel Whittington MD Arrived 07/10/2024 Orders Only [facility] Oncology and Hematology [facility] [address] [place] [address] Victor Manuel Whittington MD Cutaneous T-cell lymphoma, unspecified body region (CMS/HCC) (Primary Dx) 07/01/2024 External Device Data STL ABSTRACTION Provider, [...] Sign Reading Time Taken Comments Blood Pressure 127/87 07/17/2024 10:17 AM CDT Pulse 77 07/17/2024 10:17 AM CDT Temperature 36.1 C (96.9 F) 07/17/2024 10:17 AM CDT Respiratory Rate 15 07/17/2024 10:17 AM CDT Oxygen Saturation 93% 07/17/2024 10:17 AM CDT Inhaled Oxygen Concentration - - Weight 99 kg (218 lb 3.2 oz) 07/17/2024 10:17 AM CDT Height 182.9 cm (6') 06/18/2023 1:46 PM CDT Body Mass Index 29.59 06/18/2023 1:46 PM CDT Plan of Treatment Health Maintenance Due Date [...] 07/12/2004 ZOSTER VACCINE (1 of 2) 07/12/2009 PNEUMOCOCCAL VACCINE 50+ YEA RS (2 of 2 - PPSV23) 09/17/2017 07/23/2017 RSV VACCINE (60+ or ) (1 - Risk 60-74 years 1-dose series) 2019 INFLUENZA VACCINE (#1) 2023 , 11/05/2019, 03/21/2017, Additional history exists Preventative Visit-Managed Medicaid 04/12/2024 04/12/2023 Abdominal Aortic Aneurysm (A AA) Screening 07/12/2024 DTAP/TDAP/TD VACCINES (2 - T d or Tdap) 07/24/2027 07/23/2017 Procedures Procedure Name Priority Date/Time Associated Diagnosis Comments LACTATE DEHYDROGENASE Routine 05/12/2024 7:50 AM CDT Cutaneous T-cell lymphoma, unspecified body region (CMS/HCC) from Last 3 Months Results * LACTATE DEHYDROGENASE (05/12/2024 7:50 AM CDT) LD (LACTATE DEHYDROGENASE) 121 120 - 250 U/L [facility] Comment: FASTING:NO FASTING: NO Test Performed at: [facility] [id number] [id number] Kristyn-Ann Crandall MD Blood 05/12/2024 7:50 AM CDT 05/12/2024 7:51 AM CDT Victor Manuel Whittington MD CHEMISTRY ORDERABLES Final Resu lt [facility] [phone] [facility] [address] [place] [address] from Last 3 Months Insurance [place] Care Teams Laboratory Inspector Relationship Specialty Start Date End Date Enoch Carter MD [address] [place] [phone] PCP - General Family Practice 07/17/24
--- OUTSIDE RECORDS SUMMARY | 2024-07-17 10:24 | XMS_ITS | Clinical Summary ---
Author Organization [facility] Address [address] [place] [address] Phone Care Team Providers Care Fisher Seal Name Role Phone Anna Henry MD Primary Care Provider [phone] Allergies No known active allergies Medications ALPRAZolam [...] Comments Blood Pressure 130/70 01/11/2020 5:57 AM FIREBREAK CUTTER Pulse 84 01/11/2020 5:57 AM FIREBREAK CUTTER Temperature 36.7 C (98 F) 01/11/2020 5:57 AM FIREBREAK CUTTER Respiratory Rate - - Oxygen Saturation - - Inhaled Oxygen Concentration - - Weight 85.7 kg (189 lb) 01/11/2020 5:57 AM FIREBREAK CUTTER Height 177.8 cm (5' 10) 01/11/2020 5:57 AM FIREBREAK CUTTER Body Mass Index 27.12 01/11/2020 5:57 AM FIREBREAK CUTTER Plan of Treatment Health Maintenance Due Date Last Done Comments Pneumococcal PPSV23/PCV13 65 + Years / Low and Medium Risk (2 of 3 - PPSV23) 07/23/2018 07/23/2017 Influenza Vaccine (Season Ended) 2024 11/05/19 20, 03/21/2017 Insurance Care Teams Fisher Seal Relationship Specialty Start Date End Date Anna Henry MD [address] [place] [id number] PCP - General Internal Medicine 11/18/19
--- OUTSIDE RECORDS SUMMARY | 2024-07-17 10:24 | XMS_ITS | Continuity of Care Document ---
Author Organization [facility] Address [address] [address] [place] [address] Phone Care Team Providers Care Ham Sawyer Name Role Phone Enoch Carter MD Unavailable [...] Active avoid drivin g or operate machines methotrexate sodium 2.5 mg tablet take 6 tablet by oral route every week 15 MG - Active Eliquis 5 mg tablet take 1 tablet by oral route 2 times every day 5 MG - Active Norvasc 5 mg tablet take 1 tablet by oral route every day 5 MG - Active Lipitor 40 mg tablet take 1 tablet by oral route every day 40 MG - Active metformin 1,000 mg tablet take 2 tablet by oral route every day with morning and evening meals 2000 MG - Active metoprolol tartrate 25 mg tablet take 3 tablet by oral route 2 times every day 75 MG - Active Procedures Procedure Date OFFICE/OUTPATIENT VISIT, EST OFFICE/OUTPATIENT VISIT, EST OFFICE/OUTPATIENT VISIT, EST OFFICE/OUTPATIENT VISIT, EST OFFICE/OUTPATIENT VISIT, EST OFFICE/OUTPATIENT VISIT, EST Advance Directives Directive Yes / No Effective Date File Name No Information Encounters Encounter Description Practice Location Reason(s) For Visit Diagnoses Date Provider Providers Copied on Encounter OFFICE/OUTPA TIENT VISIT, [facility], [address] [place], [id number], tel:[phone] [facility] colon polyp (chief complaint) Paroxysmal atrial fibrillationPolyp of colon Ministerio-0 5 Raul Baig [address], [place], [place], [id number] , [place]. tel:[phone] OFFICE/OUTPA TIENT VISIT, [facility], [address] [place], [place], [address], tel:[phone] [facility] back pain1 (chief complaint) anxiety1 (chief complaint) Chronic pain syndromeGeneralized Anxiety Disorder June- 5 Raul Baig [address], [place], [place], [address] , [place]. tel:[phone] OFFICE/OUTPA TIENT VISIT, [facility], [address] [place], [address], [place] tel:[phone] [facility] anxiety1 (chief complaint) back pain1 (chief complaint) HTN (chief complaint) colon polyp1 (chief complaint) Chronic pain syndromeGeneralized Anxiety DisorderPolyp of colonEssential (primary) hypertension May-3 0 5 Raul Baig [address], [place], [place], [address] , [place]. tel:[phone] OFFICE/OUTPA TIENT VISIT, [facility], [address] [place], [address], [place] tel:[phone] [facility] anxiety1 (chief complaint) back pain1 (chief complaint) colon1 (chief complaint) anemia1 (chief complaint) AnemiaChronic pain syndromeGeneralized Anxiety DisorderPolyp of colonHypomagnesemia Apr-0 2- 5 Raul Baig [address], [place], [place], [address] , [place]. tel:[phone] OFFICE/OUTPA TIENT VISIT, [facility], [address] [facility] [place], [address], tel:[phone] [facility] anxiety1 (chief complaint) back pain1 (chief complaint) afib (chief complaint) DM (chief complaint) anemia1 (chief complaint) Atrial fibrillationEssenti al (primary) hypertensionGeneral ized Anxiety DisorderChronic pain syndromeType 2 diabetes mellitus without complicationsAnemia Hypomagnesemia 5 Carter Enoch. [address], [place], [place], [address] , . tel:[phone] OFFICE/OUTPA TIENT VISIT, [facility], [address] [facility] [place], [place], [address], tel:[phone] [facility] afib (chief complaint) anxiety1 (chief complaint) back pain1 (chief complaint) T cell (chief complaint) DM (chief complaint) Type 2 diabetes mellitus without complicationsMixed hyperlipidemiaEssen tial (primary) hypertensionGeneral ized Anxiety DisorderChronic pain syndromeAtrial fibrillationAdult T-cell leukemiaPrsnl hx of TIA (TIA), and cereb infrc w/o resid deficits Fe 5 Carter [address]noch. [address] [place], [place], [address] , [place]. [phone] Family History Family Member Type Diagnosis Age At Onset Mother Problem of CAD 80 Father Problem of 89 pneumonia Brother Problem of CAD 64 Payers Payer name Insurance type Covered alliance party ID Aiyln núñez(s) [facility] [id number] Social History Type Description Quantity Date Captured Comments Alcohol Use Details No Caffeine Use Details Unknown Tobacco Use Status Ex-cigarette smoker 025 Smoking Status Former smoker Sex Male Vital Signs Date / Time: Height Weight BMI Pulse Rate Blood Pressure Temperature Respiratory Rate Body Surface Area Head Circumference BMI percentile Pulse Ox Inhaled Ox 8:49 PM 72.00 in 221.00 lbs 29.9 7 kg/m eter (2) Chief Complaint And Reason For Visit From encounter dated '07/11/2024 14:52'. colon polyp (chief complaint). Description: Pt has history of colon polyp and he is scheduled for colonoscopy in one week. He supposes to be on eliquis but he has not been on it for multiple month. His dining room hostess who started him on eliquis no longer takes his insurance and he last saw the dining room hostess was 6 months ago. Pt told me somebody told him to stop eliquis several months ago but he is not sure who and why. Pt has history of paroxymal afib and he had event monitor done which showed paroxymal afib and his dining room hostess actually called in one year supply of eliquis for him but he is confused and stopped eliquis without consulting his dining room hostess. he denies any chest pain or palpitation. Gi doctor office contact me today regarding his complicated situation and whether he needs eliquis or not. Plan Of Treatment Date Type Action Status Referral Ordered: LUMBAR XRAY AP AND LAT ONLY ordered Referral Ordered: COLONOSCOPY AND BIOPSY ordered Appointment Oscar Moreno BOOKED History Of Present Illness Encounter Date Complaint History Of Prese nt Illness colon polyp Pt has history o f colon polyp and he is scheduled for colonoscopy in one week. He supposes to be on eliquis but he has not been on it for multiple month. His dining room hostess who started him on eliquis no longer takes his insurance and he last saw the dining room hostess was 6 months ago. Pt told me somebody told him to stop eliquis several months ago but he is not sure who and why. Pt has history of paroxymal afib and he had event monitor done which showed paroxymal afib and his dining room hostess actually called in one year supply of eliquis for him but he is confused and stopped eliquis without consulting his dining room hostess. he denies any chest pain or palpitation. Gi doctor office contact me today regarding his complicated situation and whether he needs eliquis or not. back pain1 Pt has chronic l ow [...] polyp Pt tod me he went to [place] and found out that his last colonoscopy [...] not want to check BG at home afib Pt is on norvasc and metformin and eliquis and ASA Pt is off plavix. pt denies any chest pain Pt was told to follow up with cardiology around July. he had negative cardiac echo and carotid doppler. Pt also wore cardiac event monitor which did not show recurrent afib per patient. He is off diltiazem. anemia1 Pt has mild anem ia and low mag Pt was replaced in hospital .Pt denies any chest pain or palpitation afib Pt was recently admitted to hospital [...] No Information Assessments Type Assessment Date assessment Paroxysmal atrial fibrillation J assessment Polyp of colon Mental Status Date Cognitive Assessment Orientation - Orinda ed to time, place, person, situation.
--- OUTSIDE RECORDS SUMMARY | 2024-07-17 10:24 | XMS_ITS | Encounter Summary ---
Author Organization [facility] Address [address] [place] [address] Care Team Providers Care Bellmaker Name Role Phone Enoch Carter MD Primary Care Provider [phone] Encounter Details Date Type Department Care Team (Late st Contact Info) Description 07/17/2024 10:15 AM CDT Office Visit [facility] Oncology and Hematology - [place] [address] [facility] [address] [place] [address] Victor Manuel Whittington MD [address] [facility] [address] [place] [address] Arrived Social History Tobacco Use Types Packs/Day Years [...] on file documented as of this encounter Last Filed Vital Signs Vital Sign Reading Time Taken Comments Blood Pressure 127/87 07/17/2024 10:17 AM CDT Pulse 77 07/17/2024 10:17 AM CDT Temperature 36.1 C (96.9 F) 07/17/2024 10:17 AM CDT Respiratory Rate 15 07/17/2024 10:17 AM CDT Oxygen Saturation 93% 07/17/2024 10:17 AM CDT Inhaled Oxygen Concentration - - Weight 99 kg (218 lb 3.2 oz) 07/17/2024 10:17 AM CDT Height - - Body Mass Index 29.59 06/18/2023 1:46 PM CDT documented in this encounter Plan of Treatment Not on file documented as of this encounter Visit Diagnoses Not on filedocumented in this encounter Care Teams Bellmaker Relationship Specialty Start Date End Date Enoch Carter MD [address] [place] [phone] PCP - General Family Practice 07/17/24 documented as of this encounter
--- OUTSIDE RECORDS SUMMARY | 2024-07-17 10:24 | XMS_ITS | Data Portability ---
Author Organization [place] - [facility], Main Office Address [address] [place] [address] Care Team Providers Care Vp Product Name Role Phone LUZ ELENA PARKER Primary Care Provider [phone] LUZ ELENA PARKER Referring Provider TRACI HALEY [employer] [phone] Assessment Encounter Date Assessment Date Assessment LastModified [...] He has good rotator cuff resistance. Positive [place]'s. Positive speed, positive Neer and Landis, pain [...] He has good rotator cuff resistance. Positive [place]'s. Positive speed, positive Neer and Landis, pain [...] more view 2024 025 [email or web address] [facility] [place], [address], [place], [address], 5 14:43:52 MRI, shoulder, w/o contrast - Please contact pt to schedule apt. 2023 024 [facility] ([facility]), [address] [place], [address], 4 15:01:26 Medication Orders amlodipine 5 mg tablet 2023 024 [id number], [address] , [place], [place], [id number], 4 08:55:11 Patient TargetsNo targets recorded. Patient InstructionsNo instructions recorded. Reason for Referral None Reported. Results Created Date Observation Date Name Description Value Unit Range Abnormal Flag Note LastModifiedBy Organization Detail LastModifiedTime 07/17/19 24 07/21/2023 DRUG SCREE N 16 W/CON F, UR creatinine 88 mg/dL REFER ENCE RANGE : Ref Range >=20 Not Available [facility] ([facility]) [address] [facility], [place], [address], 07/23/2023 06:07:36 07/17/19 24 07/21/2023 DRUG SCREE N 16 W/CON F, UR ethanol biomarkers ia Negati ve NG/mL cutoff :500 Not Available [facility] ([facility]) [address] [place], [address], 07/23/2023 06:07:36 07/17/19 24 07/21/2023 DRUG SCREE N 16 W/CON F, UR amphetamines ia Negati ve NG/mL cutoff :300 Not Available [facility] ([facility]) [address] [place], [address], 07/23/2023 06:07:36 07/17/19 24 07/21/2023 DRUG SCREE N 16 W/CON F, UR barbiturates ia Negati ve NG/mL cutoff :200 Not Available [facility] ([facility]) [address] [place], [address], 07/23/2023 06:07:36 07/17/19 24 07/21/2023 DRUG SCREE N 16 W/CON F, UR benzodiazepi cinthia ia COMMEN T NG/mL cutoff :50 Furth er testi ng indic ated Not Available [facility] ([facility]) [address] [place], [address], 07/23/2023 06:07:36 07/17/19 24 07/21/2023 DRUG SCREE N 16 W/CON F, UR cocaine metabolite ia Negati ve NG/mL cutoff :150 Not Available [facility] ([facility]) [address] [place], [address], 07/23/2023 06:07:36 07/17/19 24 07/21/2023 DRUG SCREE N 16 W/CON F, UR phencyclidin e ia Negati ve NG/mL cutoff :25 Not Available [facility] ([facility]) [address] [place], [address], 07/23/2023 06:07:36 07/17/19 24 07/21/2023 DRUG SCREE N 16 W/CON F, UR 6-acetylmorp ted ia Negati ve NG/mL cutoff :10 Not Available [facility] ([facility]) [address] [place], [address], 07/23/2023 06:07:36 07/17/19 24 07/21/2023 DRUG SCREE N 16 W/CON F, UR opiate class ia COMMEN T NG/mL cutoff :100 Furth er testi ng indic ated Not Available [facility] ([facility]) [address] [place], [address], 07/23/2023 06:07:36 07/17/19 24 07/21/2023 DRUG SCREE N 16 W/CON F, UR oxycodone class ia Negati ve NG/mL cutoff :100 Not Available [facility] ([facility]) [address] [place], [address], 07/23/2023 06:07:36 07/17/19 24 07/21/2023 DRUG SCREE N 16 W/CON F, UR methadone ia Negati ve NG/mL cutoff :100 Not Available [facility] ([facility]) [address] [place], [address], 07/23/2023 06:07:36 07/17/19 24 07/21/2023 DRUG SCREE N 16 W/CON F, UR fentanyl ia Negati ve NG/mL cutoff :2.0 Not Available [facility] ([facility]) [address] [place], [address], 07/23/2023 06:07:36 07/17/19 24 07/21/2023 DRUG SCREE N 16 W/CON F, UR buprenorphin e ia Negati ve NG/mL cutoff :5.0 Not Available [facility] ([facility]) [address] [place], [address], 07/23/2023 06:07:36 07/17/19 24 07/21/2023 DRUG SCREE N 16 W/CON F, UR tramadol ia Negati ve NG/mL cutoff :200 Not Available [facility] ([facility]) [address] [place], [address], 07/23/2023 06:07:36 07/17/19 24 07/21/2023 DRUG SCREE N 16 W/CON F, UR propoxyphene ia Negati ve NG/mL cutoff :300 Not Available [facility] ([facility]) [address] [place], [address], 07/23/2023 06:07:36 07/17/19 24 07/21/2023 DRUG SCREE N 16 W/CON F, UR tapentadol ia Negati ve NG/mL cutoff :200 Not Available [facility] ([facility]) [address] [place], [address], 07/23/2023 06:07:36 07/17/19 24 07/21/2023 DRUG SCREE N 16 W/CON F, UR nicotine metabolite Negati ve Not Available [facility] ([facility]) [address] [place], [address], 07/23/2023 06:07:36 07/17/19 24 07/21/2023 DRUG SCREE N 16 W/CON F, UR cotinine Not Detect ed NG/mL Not Available [facility] ([facility]) [address] [place], [address], 07/23/2023 06:07:36 07/17/19 24 07/21/2023 BENZO DIAZE PINES , MS, UR RFX benzodiazepi cinthia ++POSI TIVE++ abnormal Not Available [facility] ([facility]) [address] [place], [address], 07/23/2023 06:07:37 07/17/19 24 07/21/2023 BENZO DIAZE PINES , MS, UR RFX diazepam Not Detect ed NG/mg _crea t Not Available [facility] ([facility]) [address] [place], [address], 07/23/2023 06:07:37 07/17/19 24 07/21/2023 BENZO DIAZE PINES , MS, UR RFX desmethyldia zepam Not Detect ed NG/mg _crea t Not Available [facility] ([facility]) [address] [place], [address], 07/23/2023 06:07:37 07/17/19 24 07/21/2023 BENZO DIAZE PINES , MS, UR RFX oxazepam Not Detect ed NG/mg _crea t Not Available [facility] ([facility]) [address] [place], [address], 07/23/2023 06:07:37 07/17/19 24 07/21/2023 BENZO DIAZE [...] shilpi Oxaze shilpi: None Not Available [facility] ([facility]) [address] [facility], [place], [address], 07/23/2023 06:07:37 07/17/19 24 07/21/2023 BENZO DIAZE PINES , MS, UR RFX alprazolam 119 NG/mg _crea t Not Available [facility] ([facility]) [address] [facility], [place], [address], 07/23/2023 06:07:37 07/17/19 24 07/21/2023 BENZO DIAZE PINES , MS, UR RFX alpha-hydrox yalprazolam 294 NG/mg _crea t Not Available [facility] ([facility]) [address] [place], [address], 07/23/2023 06:07:37 07/17/19 24 07/21/2023 BENZO DIAZE PINES , MS, UR RFX desalkylflur azepam Not Detect ed NG/mg _crea t Not Available [facility] ([facility]) [address] [facility], [place], [address], 07/23/2023 06:07:37 07/17/19 24 07/21/2023 BENZO DIAZE PINES , MS, UR RFX lorazepam Not Detect ed NG/mg _crea t Not Available [facility] ([facility]) [address] [place], [address], 07/23/2023 06:07:37 07/17/19 24 07/21/2023 BENZO DIAZE PINES , MS, UR RFX alpha-hydrox ytriazolam Not Detect ed NG/mg _crea t Not Available [facility] ([facility]) [address] [place], [address], 07/23/2023 06:07:37 07/17/19 24 07/21/2023 BENZO DIAZE PINES , MS, UR RFX clonazepam Not Detect ed NG/mg _crea t Not Available [facility] ([facility]) [address] [place], [address], 07/23/2023 06:07:37 07/17/19 24 07/21/2023 BENZO DIAZE PINES , MS, UR RFX 7-aminoclona zepam Not Detect ed NG/mg _crea t Not Available [facility] ([facility]) [address] [place], [address], 07/23/2023 06:07:37 07/17/19 24 07/21/2023 BENZO DIAZE PINES , MS, UR RFX midazolam Not Detect ed NG/mg _crea t Not Available [facility] ([facility]) [address] [place], [address], 07/23/2023 06:07:37 07/17/19 24 07/21/2023 BENZO DIAZE PINES , MS, UR RFX alpha-hydrox ymidazolam Not Detect ed NG/mg _crea t Not Available [facility] ([facility]) [address] [place], [address], 07/23/2023 06:07:37 07/17/19 24 07/21/2023 BENZO DIAZE PINES , MS, UR RFX flunitrazepa m Not Detect ed NG/mg _crea t Not Available [facility] ([facility]) [address] [place], [address], 07/23/2023 06:07:37 07/17/19 24 07/21/2023 BENZO DIAZE PINES , MS, UR RFX desmethylflu nitrazepam Not Detect ed NG/mg _crea t Not Available [facility] ([facility]) [address] [place], [address], 07/23/2023 06:07:37 07/17/19 24 07/21/2023 OPIAT E CLASS , MS, UR RFX opiate class ++POSI TIVE++ abnormal Not Available [facility] ([facility]) [address] [place], [address], 07/23/2023 06:07:37 07/17/19 24 07/21/2023 OPIAT E CLASS , MS, UR RFX codeine Not Detect ed NG/mg _crea t Not Available [facility] ([facility]) [address] [facility], [place], [address], 07/23/2023 06:07:37 07/17/19 24 07/21/2023 OPIAT E CLASS , MS, UR RFX morphine Not Detect ed NG/mg _crea t Not Available [facility] ([facility]) [address] [facility], [place], [address], 07/23/2023 06:07:37 07/17/19 24 07/21/2023 OPIAT E CLASS , MS, UR RFX normorphine Not Detect ed NG/mg _crea t Not Available [facility] ([facility]) [address] [facility], [place], [address], 07/23/2023 06:07:37 07/17/19 24 07/21/2023 OPIAT E CLASS , MS, UR RFX norcodeine Not Detect ed NG/mg _crea t Not Available [facility] ([facility]) [address] [facility], [place], [address], 07/23/2023 06:07:37 07/17/19 24 07/21/2023 OPIAT E CLASS , MS, UR RFX hydrocodone 255 NG/mg _crea t Not Available [facility] ([facility]) [address] [place], [address], 07/23/2023 06:07:37 07/17/19 24 07/21/2023 OPIAT E CLASS , MS, UR RFX hydromorphon e Not Detect ed NG/mg _crea t Not Available [facility] ([facility]) [address] [facility], [place], [address], 07/23/2023 06:07:37 07/17/19 24 07/21/2023 OPIAT E CLASS , MS, UR RFX dihydrocodei ne 63 NG/mg _crea t Not Available [facility] ([facility]) [address] [facility], [place], [address], 07/23/2023 06:07:37 07/17/1907/21/2023 OPIAT E CLASS , MS, UR RFX norhydrocodo ne 409 NG/mg _crea t Expec khang metab olism of opiat e class drugs : Paren t Drug Detec khang Metab olite s ----- ----- - ----- ----- ----- ----- Codei ne: Major : Morph ine, [place] deine Minor : [place] codon e, [place] morph one, Dihyd rocod eine, Norhy droco done, Normo rphin e Morph ine: Major : Normo rphin e Minor : [place] morph one [place] codon e: [place] morph one, Dihyd rocod eine, Norhy droco done [place] morph one: None Dihyd rocod eine: None Heroi n: 6-Joe tylmo rphin e (if inclu ded), Morph ine, Normo rphin e Codei ne, in small amoun ts in [place] to morph ine, is often detec khang when heroi n is the sourc e drug. Not Available [facility] ([facility]) [address] [facility], [place], [address], 07/23/2023 06:07:37 07/04/19 24 07/03/2023 PET, skull base to mid-t high No observ ation record ed. [email or web address] [facility] [address], [place], [address], 07/30/2023 08:29:18 07/19/19 24 07/19/2023 MRI, tilaul marce, w/o contr ast No observ ation record ed. [email or web address] [facility] ([facility] Sched[facility]) [address] [place], [address], 07/25/2023 15:39:49 07/19/19 24 07/19/2023 MRI, shoul marce, w/o contr ast No observ ation record ed. [email or web address] [facility] [address] [place], [address], 07/19/2023 23:43:01 01/20/20 24 01/20/2024 XR, chest , 2 view No observ ation record ed. [email or web address] [facility] [address] [place], [address], 03/13/2024 15:42:23 06/05/19 25 XR, shoul marce, 2 or more view No observ ation record ed. [email or web address] [facility] [place] [address], [place], [address], 06/05/2024 14:43:51 Result Notes None recorded. Problems Name Problem SNOMED Code Status Onset Date Resolution Date Notes Provider Name and Address Organization Details Recorded Time Pain of right shoulder joint 83102567039 364681 Active 2021 Not Available [employer] 3 16:56:22 Tendiniti s of right rotator cuff 62125125452 592225 Active 2021 Not Available [employer] 3 16:56:22 Dry skin 97801041 Active Not Available [employer] 3 16:56:22 Cobalamin deficienc y 245923434 Active 2019 Not Available [facility] 3 16:56:22 Insomnia 107557033 Active Not Available [facility] 3 16:56:23 Partial thickness rotator cuff tear 048067420 Active 2021 Not Available [facility] 3 16:56:23 Gastroeso phageal reflux disease 259607528 Active Not Available [facility] 3 16:56:23 Transient cerebral ischemia 271511589 Active Not Available [facility] 3 16:56:23 Eruption 594820850 Active Not Available [facility] 3 16:56:23 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 Need colonosco py every 5 yrs07/2014 Not Available [facility] 3 16:56:23 Renal disorder due to type 2 diabetes mellitus 534631926 Active 2021 Not Available [facility] 3 16:56:23 Chronic otitis externa 47050007 Active Not Available [facility] 3 16:56:23 Upper respirato ry infection 74385234 Active Not Available [facility] 3 16:56:23 Hyperlipi demia 08292629 Active Not Available [facility] 3 16:56:24 Diabetes mellitus 52983679 Active Not Available [facility] 3 16:56:24 Strain of rotator cuff of shoulder 912407598 Active 2021 Not Available [facility] 3 16:56:24 Dental abscess 231169402 Active 2022 Anna Henry MD [address], [place] [address], [place], [address] , In[employer]ator [facility] [employer] [facility] 3 08:22:10 Essential hypertens ion 44554487 Active 2022 Anna Henry MD [address], [place], [address] , [employer] [facility] [employer] [facility] 3 08:28:58 Serum creatinin e above reference range 426261313 Active 2022 MD Yuliet Gan [address], [place], [address] , [employer] [facility] [employer] [facility] 3 07:48:10 Anxiety 83733469 Active 2022 MD Yuliet Gan [address], [place], [address] , [facility] [employer] [facility] 3 15:29:22 Leukocyto sis 555311104 Active 2022 Anna Henry MD [address] [facility] [facility] [address], [place], [address] , [facility] [employer] [facility] 3 08:46:44 Partial thickness rotator cuff tear 350982839 Active 2023 Anna Henry MD [address] [facility], [facility] [address], [place], [address] , [facility] [employer] [facility] 4 08:55:48 Traumatic rupture of rotator cuff 794889219 Active 2023 Anna Henry MD [address] [facility], [place] [address], [place], [address] , [facility] [employer] [facility] 4 08:57:00 Hypercalc emia 56961898 Active 2023 Anna Henry MD [address] [facility], [place] [address], [place], [address] , [facility] [employer] [facility] [employer] [facility] 4 14:03:54 Pain of right shoulder region Active 2024 GILA Hernandez, [facility] [employer] [facility] 5 15:23:55 Problem Notes None recorded. Procedures Surgical History Date Name Laterality Status Provider Name and Address Organization Details Recorded Time Unlisted px femur/knee completed Not Available [facility] 04/05/2022 16:55:33 Imaging Results None recorded. Procedure Notes None recorded. Medical Equipment None Reported. Allergies Allergen ID Allergen Name Allergen Category Reaction Reaction Severity Criticality Documentation Date Start Date Code Code System Note Provider Name and Address Organization Details Recorded Time 11589 Celebrex medicatio n chest pain moderate Not available 04/05/2022 15679 7 RxNorm Cause d extre me high BP in conju ction with other meds Not Available [facility] 3 16:57:41 Medications Name Sig Start Date [...] THICK LAYER TO ENTIRE AREA BY TOPICALRO COUSHATTA 2 TIMES PER DAY active Not Available [...] 20 mg by injection route. 04/11 completed [facility]: [phone] Not Available Not Available [...] propionate 50 mcg/actuati on nasal spray,suspe nsion [place] 1 spray every day by intranasa l [...] 20 mg by injection route. 10/12 completed [facility] [phone] Not Available Not Available Not [...] Updated DateTime 06/04/2024 182.88 cm 29.2 kg/m2 84869.36 g GILA Hernandez [facility] [employer] [facility] 06/04/2024 15:21:04 Date Recorded Body height Body mass index (BMI) Body weight Provider Name and Address Organization Details Last Updated DateTime 07/04/2023 182.88 cm 27.1 kg/m2 31655.47 g Christina Ortega CNA [facility] [employer] [facility] 07/04/2023 14:40:24 Date Recorded Body height Provider Name an d Address Organization Details Last Updated DateTime 07/17/2023 182.88 cm Em Livingston RN [facility] I L [employer] [facility] 07/17/2023 10:42:04 Date Recorded Body height Body mass index (BMI) Body weight Provider Name and Address Organization Details Last Updated DateTime 07/25/2023 182.88 cm 27.1 kg/m2 69287.47 g Elizabeth Chi Aly [facility] [employer] [facility] 07/25/2023 11:14:17 Date Recorded Body height Body mass index (BMI) Body weight Body temperature Heart rate Oxygen saturation Oxygen saturation in Arterial blood by Pulse oximetry Systolic blood pressure Diastolic blood pressure Provider Name and Address Organization Details Last Updated DateTime 182.88 cm 27.4 kg/m2 49801.6 6 g 98.5 [degF] 69 /min 100 % 100 % 138 mm[Hg] 86 mm[Hg] KEITH [facility] - [facility] [place] [facility] 08:40:59 Social History Question Answer Notes LastModified by [employer] Details LastModified Time Tobacco Smoking Status Former Smoker Christinaaddy OrtegaDESI, [facility] [employer] 10/05/2022 14:40:41 In The 14 Days Before Symptom Onset, Have You Had Close Contact With A Laboratory-confir med COVID-19 While That Case Was Ill? No [id number] Information not available 04/05/2022 In The 14 Days Before Symptom Onset, Have You Had Close Contact With A Person Who Is Under Investigation For COVID-19 While That Person Was Ill? No [id number] Information not available 04/05/2022 What Type Of Diet Are You Following? REGULAR [id number] Information not available 04/05/2022 When Did You Quit Smoking? 15+yearssin celastcigar ette 35 Years Ago [email or web address] Information not available 10/05/2022 What Was The Date Of Your Most Recent Tobacco Screening? 06/04/2024 [email or web address] Information not available 06/04/2024 Sex: Unknown Functional Status Question Answer Note LastModified by [employer] Details LastModified Time What is your level of alcohol consumption? 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 Family History Relationship Description Onset Age of this Age Resolved Age Notes LastModified by Organization Details LastModified Time Brother Congestive heart failure 64 Not available 07/24 11:13:17 Sister Dementia [email or web address] Not availab le 07/25/2023 11:13:17 Sister Myocardial infarction 73 [email or web address] Not available 04/11 08:33:43 Mother Heart disease [email or web address] Not available 2022 14:39:40 Mother Family history of stroke [email or web address] Not available 07/24 11:13:17 Medical History Condition Response CANCER: SPECIFY Y ARTHRITIS Y USE OF BLOOD THINNERS Y DIABETES, TYPE Y HEART ARRHYTHMIA Y STROKE/TIA Y Immunizations Vaccine Type Date Status Note Provider Nam e and Address Organization Details Recorded Time Influenza, split virus, quadrivalent, PF 3 completed Kristie Lewis RN [facility], [place] - [facility] 10/12/2022 08:27:15 Pneumococcal conjugate PCV 13 8 completed Not Available [facility] 04/05/2022 16:57:40 Tdap 8 completed Not Available [facility] 04/05/2022 16:57:40 Influenza, split virus, quadrivalent, PF 8 completed Not Available [facility] 04/05/2022 16:57:40 Influenza, split virus, quadrivalent, preservative 6 completed Not Available [facility] 04/05/2022 16:57:40 Past Encounters Encounter ID Performer Location Encounter Start Date Encounter Closed Date Diagnosis/Indication Diagnosis SNOMED-CT Code Diagnosis ICD10 Code Diagnosis Note [id number] DIONNE Aguilar [facility] Primary [facility] [place] [address] [place] [address] 10/25/2020 00:00:00 10/25/2020 17:10:[id number] [facility] Primary [facility] [place] [address] [place] [address] 03/18/2021 00:00:00 03/18/2021 09:57:34 [id number] [facility] Primary [facility] [place] [address] [place] [address] 04/12/2021 00:00:00 04/12/2021 09:52:23 [id number] [facility] [place] [address] [place] [address] 04/13/2021 00:00:00 04/13/2021 12:26:[id number] [facility] [place] [address] [place] [address] 05/17/2021 00:00:00 05/17/2021 16:01:[id number] [facility] [place] [address] [place] [address] 06/30/2021 00:00:00 06/30/2021 13:05:[id number] [facility] [place] [address] [place] [address] 07/28/2021 00:00:00 07/28/2021 11:15:[id number] [facility] [place] [address] [place] [address] 08/25/2021 00:00:00 08/25/2021 09:16:[id number] [facility] Primary [place] [address] [place] [address] 10/12/2021 00:00:00 10/12/2021 08:32:[id number] [facility] [place] [address] [place] [address] 04/12/2022 08:05:11 04/12/2022 08:42:06 Dental abscess [id number] K04.7 has upcoming appt with dentistcou nseled [...] and to guard from loss/theft Diabetes mellitus 686056 09 E11.21 check labscontin ue current meds Hyperlipidemia 52427912 E78.5 Z79.899 Lymphomato id papulosis 43324155 C86.6 Cobalamin deficiency 190 752911 E53.8 Essential hypertension 22896206 I10 stablecont inue current meds [id number] Randall Jacobs MD [facility] [place] [address] [place] [address] 10/05/2022 14:18:04 10/05/2022 15:57:37 Pain of right shoulder joint 6801734682 1901717 M25.511 Partial th ickness rotator cuff tear 275321492 M75.101 Osteoarthr itis of joint of right shoulder region 5283686359 99232 M19.[id number] [facility] Primary Care [facility] [address] [facility] [address] [place] [address] 10/12/2022 07:57:19 10/12/2022 08:26:19 Essential hypertension 58680227 I10 check home blood pressures 2x per weekcontin ue current medscheck cbc and bmp Administra tion of influenza vaccine 47283790 Z23 Renewal of prescription 764745646 Z76.0 [id number] Anna Henry MD [facility] Care [facility] [address] [facility] [address] [place] [address] 12/07/2022 12:07:36 12/25/2022 15:11:25 [id number] Ignacio Parmar MD [facility] [place], [place] [facility] [address] [place] [address] 03/01/2023 13:41:36 03/01/2023 15:57:58 Pain of right shoulder joint [id number] M25.511 Partial th ickness rotator cuff tear 694276252 M75.101 Osteoarthr itis of joint of right shoulder region [id number] 70459 M19.768 [id number] Anna Henry MD [facility] Care [facility] [address] [facility] [address] [place] [address] 04/12/2023 07:54:52 04/12/2023 09:11:29 Cobalamin deficiency 050088839 E53.8 Diabetes mellitus 342286 09 E11.21 check labscontin ue metformin 1000 mg bid Essential hypertension 55643935 I10 check home blood pressures 2x per weekcontin ue current medscheck cbc and bmp Hyperlipidemia 37585943 E78.5 Z79.899 Vitamin D deficiency 347 67050 E55.9 Adult heal th examination 534196974 Z00.00 get colonoscop y recordsPne umovax 23 done 2015Tdap 2018Prevna r 13 2018Flu vaccine yearlyReco mmend shingles vaccine seriesReco mmend covid boosterPne umovax 23 again at age 64 Traumatic rupture of rotator cuff 805741885 S46.091S M19.011 out of work until releasedun marce care [facility] orth[facility]i nue home exercise [id number] Anna Henry MD [facility] [place] [address] [place] [address] 04/13/2023 15:31:31 04/13/2023 15:57:14 [id number] Cristian Ta [address] [facility] [address] [place] [address] 05/02/2023 09:15:38 05/02/2023 10:06:33 Pain of right shoulder joint 4627690557 8033041 M25.183 [id number] [address] [facility] [place] [address] [place] [address] 05/29/2023 08:21:16 05/29/2023 09:12:08 Essential hypertension 14276729 I10 In good control per home readingsf/ u in 8 weeks Partial th ickness rotator cuff tear 698627824 M75.101 Out of work until releasedco mplete PThas MRI scheduled for further evaluation [id number] Cristian Ta MD [facility] [address] [place] [address] 07/04/2023 14:31:05 07/04/2023 15:39:15 Pain of right shoulder joint 3428771661 6231630 M25.[id number] [facility] [place] [address] [place] [address] 07/17/2023 10:37:41 07/17/2023 10:59:04 [id number] [address] [facility] [address] [place] [address] 07/25/2023 11:12:18 07/25/2023 12:03:49 Pain of right shoulder joint [id number] 3835387 M25.196 [id number] CANDICE Gar [facility] [place] [address] [facility] [address] [place] [address] 07/31/2023 08:31:25 07/31/2023 09:01:20 Essential hypertension 16580176 I10 -bp 138/86, 69 no peguero cp sob-drinks plenty of water/day Partial th ickness rotator cuff tear 063893004 M75.101 -has stopped therapy per Dr. Kaya serna awaiting workman's comp for surgery approval-c ontinue f/u with Dr. Hansen ue to be out of work [id number] Cristian Ta MD [facility] [address] [place] [address] 06/04/2024 14:55:23 06/04/2024 15:55:44 Pain of right shoulder region 1774331966 M25.511 Health Concerns Section Related Observation LastModified by Organization Detai ls LastModified Time None Recorded Concern Status LastModified by Organization Details LastModified Time None Recorded Advance Directives Directive None Recorded Payers Insurance Date Sequence Insurance Name Policy Number Policy Marie Covered Member ID Marie Member ID Guarantor Name 06/04/2024 1 [place] [employer] Ham Moreno [id number] Ham Moreno 06/04/2024 1 [employer] [facility] [id number] Ham Moreno [id number] Ham Moreno 04/12/2023 1 *SELF PAY* hua Moreno 06/04/2024 1 [facility] [id number] Ham Moreno [id number] Ham Moreno 06/04/2024 [employer] [facility] Ham Moreno 06/04/2024 1 [employer] [facility]PP[employer] [id number] Ham Moreno [id number] Ham Moreno 05/23/[address] [facility] [employer] [facility] [employer] Ham Moreno Notes Date Note Type Note Provider Name and Address Organization Details Recorded Time 07/31/2023 text/html pt is here for f/u CANDICE Gar [address] [facility] [address], [place], [address], [place] [facility] 08/02/2023 17:29:05
[2024-07-17 12:53] LABS: Lactate Dehydrogenase 172 U/L (120-246)
== END 2024-07-17 09:42 | disposition home or self-care (01) ==
LOC: ANHLAB 09:42
PROVIDERS: PCP Emergency Medicine; Visit Provider Internal Medicine Hematology & Oncology
DX: C84.A0 Cutaneous T-cell lymphoma, unspecified, unspecified site (principal)
CPT/HCPCS: 36415; 80047; 83615; 85025

== ENCOUNTER 2025-01-20 09:41 | Outpatient (CLI) | payer OTHER, MEDICARE, SELFPAY ==
[2025-01-20 09:58] LABS: Hematocrit 37.5 % (42.0-52.0); Hemoglobin 12.2 g/dL (14.0-18.0); Immature Granulocyte Percent A 0.4 % (0-0.5); Lymphocytes Absolute Auto 1.23 K/mm3 (0.9-3.2); Mean Corpuscular HGB Conc 32.5 g/dl (32-36); Mean Corpuscular Hemoglobin 30.9 pg (26-34); Mean Corpuscular Volume 94.9 fl (80-100); Nucleated Red Blood Cells Absolute Auto 0.000 K/mm3 (0.0-0.012); Nucleated Red Blood Cells Perc 0.0 % (0.0-0.2); Platelet Count Result 282 k/mm3 (150-375); Red Blood Count 3.95 M/mm3 (4.6-6.20); White Blood Count 7.8 K/mm3 (4.5-10.0)
[2025-01-20 10:01] LABS: Blood Urea Nitrogen 25 mg/dL (8-26); Carbon Dioxide 27 mmol/L (22-30); Chloride 104 mmol/L (98-109); Estimated Glomerular Filt Rate 30; Glucose 153 mg/dL (70-105); Ionized Calcium (POC) 1.27 mmol/L (1.11-1.31); Potassium 4.2 mmol/L (3.5-4.9); Sodium 141 mmol/L (138-146)
--- OUTSIDE RECORDS SUMMARY | 2025-01-20 10:15 | XMS_ITS | Encounter Summary ---
Author Organization [facility] [employer] [facility] Address [address] [place] [address] Care Team Providers Care Php Programmer Name Role Phone Enoch Carter MD Primary Care Provider [phone] Encounter Details Date Type Department Care Team (Late st Contact Info) Description 01/20/2025 10:15 AM COMMISSIONED FIRE OFFICER Office Visit [facility] Oncology and Hematology - [place] [address] [facility] [address] [place] [address] Victor Manuel Whittington MD [address] [facility] [address] [place] [address] Cutaneous T-cell lymphoma, unspecified body region (CMS/HCC) (Primary Dx) Social History Tobacco Use Types Packs/Day Years [...] Sign Reading Time Taken Comments Blood Pressure 133/89 01/20/2025 10:09 AM COMMISSIONED FIRE OFFICER Pulse 87 01/20/2025 10:09 AM COMMISSIONED FIRE OFFICER Temperature 36.1 C (96.9 F) 01/20/2025 10:09 AM COMMISSIONED FIRE OFFICER Respiratory Rate 16 01/20/2025 10:0 9 AM COMMISSIONED FIRE OFFICER Oxygen Saturation 90% 01/20/2025 10: 09 AM COMMISSIONED FIRE OFFICER Inhaled Oxygen Concentration - - Weight 101.2 kg (223 lb 3.2 oz) 025 10:09 AM COMMISSIONED FIRE OFFICER Height - - Body Mass Index 30.27 06/18/2023 1:46 PM CDT documented in this encounter Plan of Treatment Upcoming Encounters Date Type Department Care Team (Late st Contact Info) Description 07/23/2025 10:00 AM CDT Office Visit [facility] Oncology and Hematology - [place] [address] [facility] [address] [place] [address] Victor Manuel Whittington MD [address] [facility] [address] [place] [address] Scheduled Orders Name Type Priority Associated Diagnoses Orde r Schedule CBC WITH DIFFERENTIAL Lab Stat Cutaneous T-cell lymphoma, unspecified body region (CMS/HCC) Expected: 07/21/2025, Expires: 01/20/2026 BASIC METABOLIC PANEL Lab Stat Cutaneous T-cell lymphoma, unspecified body region (CMS/HCC) Expected: 07/21/2025, Expires: 01/20/2026 documented as of this encounter Visit Diagnoses Diagnosis Cutaneous T-cell lymphoma, unspecified body region (CMS/HCC)- Primary documented in this encounter Care Teams Php Programmer Relationship Specialty Start Date End Date Enoch Carter MD [address] [place] [phone] PCP - General Family Practice 07/17/24 documented as of this encounter
--- OUTSIDE RECORDS SUMMARY | 2025-01-20 11:00 | XMS_ITS | Clinical Summary ---
Author Organization [facility] Address [address] [facility] [place] [address] Care Team Providers Care Review Scheduling Coordinator Name Role Phone Enoch Carter MD Primary Care Provider [phone] Allergies Active Allergy Reactions Criticality Noted Date [...] Take 100 mg by mouth daily. Active folic acid (FOLVITE) 1 mg tablet [...] 8 pills 8 Tablet 2 03/20/2024 Active Eliquis 5 mg tablet Take 5 mg by mouth 2 times daily. Active Jardiance 25 mg tablet Take 1 Tablet by mouth daily. 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..] Comments Blood Pressure 133/89 01/20/2025 10:09 AM COUNSELING CENTER DIRECTOR Pulse 87 01/20/2025 10:09 AM COUNSELING CENTER DIRECTOR Temperature 36.1 C (96.9 F) 01/20/2025 10:09 AM COUNSELING CENTER DIRECTOR Respiratory Rate 16 01/20/2025 10:0 9 AM COUNSELING CENTER DIRECTOR Oxygen Saturation 90% 01/20/2025 10: 09 AM COUNSELING CENTER DIRECTOR Inhaled Oxygen Concentration - - Weight 101.2 kg (223 lb 3.2 oz) 025 10:09 AM COUNSELING CENTER DIRECTOR Height 182.9 cm (6') 06/18/2023 1:46 PM CDT Body Mass Index 30.27 06/18/2023 1:46 PM CDT Plan of Treatment Upcoming Encounters Date Type Department Care Team (Late st Contact Info) Description 07/23/2025 10:00 AM CDT Office Visit [facility] Oncology and Hematology - [place] [address] [facility] [address] [place] [address] Victor Manuel Whittington MD [address] [facility] [address] [place] [address] Health Maintenance Due Date Last Done Comments DIABETES ANNUAL FOOT EXAM 07/12/1977 DIABETES ANNUAL RETINAL EXAM 07/12/1977 DIABETES HBA1C Q 6 MONTHS 07/12/1977 DIABETES MICROALBUMIN ANNUAL SCREEN 07/12/1977 LDL CHOLESTEROL ANNUAL 07/12/1977 COLORECTAL SCREENING 07/12/2004 Colorectal Cancer Screening 07/12/2004 FIT-DNA Q 3 years 07/12/2004 FIT/FOBT Q 1 year 07/12/2004 Flex Sig/CT Colonography Q 5 years 07/12/2004 RSV VACCINE (60+ or ) (1 - Risk 50-74 years 1-dose series) 07/12/2009 ZOSTER VACCINE (1 of 2) 07/12/2009 PNEUMOCOCCAL VACCINE 50+ YEA RS (2 of 2 - PPSV23, PCV20, or PCV21) 09/17/2017 07/23/2017 Preventative Visit-Managed Medicaid 04/12/2024 04/12/2023 Abdominal Aortic Aneurysm (A AA) Screening 07/12/2024 INFLUENZA VACCINE (#1) 2024 3, 11/05/2019, 03/21/2017, Additional history exists DTAP/TDAP/TD VACCINES (2 - T d or Tdap) 07/24/2027 07/23/2017 [place] Care Teams Review Scheduling Coordinator Relationship Specialty Start Date End Date Enoch Carter MD [address] [place] [phone] PCP - General Family Practice 07/17/24
--- OUTSIDE RECORDS SUMMARY | 2025-01-20 11:00 | XMS_ITS | Clinical Summary ---
Author Organization [facility] Address [address], [place] [address] Phone Care Team Providers Care Crm Marketing Manager Name Role Phone Anna Henry MD Primary Care Provider [phone] Allergies No known active allergies Medications ALPRAZolam [...] Comments Blood Pressure 130/70 01/11/2020 5:57 AM SUPERVISOR DYER Pulse 84 01/11/2020 5:57 AM SUPERVISOR DYER Temperature 36.7 C (98 F) 01/11/2020 5:57 AM SUPERVISOR DYER Respiratory Rate - - Oxygen Saturation - - Inhaled Oxygen Concentration - - Weight 85.7 kg (189 lb) 01/11/2020 5:57 AM SUPERVISOR DYER Height 177.8 cm (5' 10) 01/11/2020 5:57 AM SUPERVISOR DYER Body Mass Index 27.12 01/11/2020 5:57 AM SUPERVISOR DYER Plan of Treatment Health Maintenance Due Date Last Done Comments Pneumococcal PPSV23/PCV13 65 + Years / Low and Medium Risk (2 of 3 - PCV20 or PCV21) 07/23/2018 07/23/2017 Influenza Vaccine (#1) 2024 11/05/2019, 2017 Insurance Care Teams Crm Marketing Manager Relationship Specialty Start Date End Date Anna Henry MD [address] [place] [address] PCP - General Internal Medicine 11/18/19
[2025-01-20 11:15] LABS: Alanine Aminotransferase 34 U/L (6-50); Albumin Level 4.5 g/dL (3.5-5.1); Alkaline Phosphatase 88 U/L (38-126); Anion Gap 11 mmol/L (4-12); Aspartate Amino Transferase 32 U/L (17-59); Bilirubin,Total 0.4 mg/dL (0.2-1.3); Blood Urea Nitrogen 25 mg/dL (9-20); Calcium 10.0 mg/dL (8.4-10.2); Carbon Dioxide 25 mmol/L (22-30); Chloride 104 mmol/L (98-107); Estimated Glomerular Filt Rate 32; Glucose 153 mg/dL (65-110); Potassium 4.3 mmol/L (3.4-5.0); Sodium 140 mmol/L (137-145); Total Protein 7.8 g/dL (6.3-8.2)
== END 2025-01-20 09:42 | disposition home or self-care (01) ==
LOC: ANHLAB 09:44
PROVIDERS: PCP Emergency Medicine; Visit Provider Internal Medicine Hematology & Oncology
DX: C84.A0 Cutaneous T-cell lymphoma, unspecified, unspecified site (principal)
CPT/HCPCS: 36415; 80047; 80053; 83615; 85025